=== PATIENT | female | born 1970 | race Caucasian/White ===

== ENCOUNTER 2018-09-06 13:46 | Outpatient (CLI) | payer BC, SELFPAY ==
[2018-09-06 15:08] LABS: TSH (W/Ref FT4) 2.47 uIU/mL (0.358-3.74)
== END 2018-09-06 14:06 ==
PROVIDERS: PCP Emergency Medicine; Visit Provider Nurse Practitioner Family
DX: R00.2 Palpitations (principal)
CPT/HCPCS: 36415; 84443

== ENCOUNTER 2018-09-25 00:50 | Outpatient (CLI) | payer BC, SELFPAY ==
--- NOTE | 2018-09-25 13:26 | DI.MAMMO_ITS ---
SYMPTOM/DIAGNOSIS SCREENING, Z12.31 MAMMOGRAMS: Mammograms were interpreted according to the usual protocol including computer analysis with CAD system, tomosynthesis and C view imaging. Comparison is made with exams from [id number]. The breasts are composed of heterogeneously dense fibroglandular tissue, breast density, Category C. No suspicious masses or suspicious microcalcifications are seen. There has been no significant change. IMPRESSION: Category 1C, negative mammogram. Yearly screening mammography is recommended. [facility] ASSESSMENT OF FINDINGS: Negative. Category 1. Patient will receive a letter notifying them of these results. Bi-RADS category C. The breasts are heterogeneously dense, which may obscure small masses.
== END 2018-09-25 01:10 ==
PROVIDERS: PCP Emergency Medicine; Visit Provider Nurse Practitioner Family
DX: Z12.31 Encounter for screening mammogram for malignant neoplasm of breast (principal)
CPT/HCPCS: 77063; 77067

== ENCOUNTER 2018-09-27 11:23 | Outpatient (CLI) | payer BC, SELFPAY ==
[2018-09-27 11:58] LABS: Absolute Basophil Count 0.02 k/cumm (0.0-0.2); Absolute Eosinophil Count 0.12 k/cumm (0.0-0.7); Absolute Lymphocyte Count 1.44 k/cumm (1.2-3.4); Absolute Monocyte Count 0.31 k/cumm (0.11-0.7); Absolute Neutrophil Count 3.08 k/cumm (1.2-6.7); Basophils % 0.4; Eosinophils % 2.4; HCT 37.7 % (36.0-46.0); HGB 12.8 g/dL (12.0-15.5); Mean Corpuscular Hemoglobin 32.6 pg (27.0-33.0); Mean Corpuscular Volume 95.9 fL (80-95); Mean Platelet Volume 9.9 fL (8.0-11.0); Monocytes % 6.2; Platelet Count 219 x1000/uL (130-400); RBC 3.93 m/cumm (4.00-5.20); RBC Distribution Width 11.8 % (11.7-14.6); White Blood Cell Count 4.97 k/cumm (4.4-10.8)
[2018-09-27 13:20] LABS: ALT 23 U/L (12-78); AST 21 U/L (15-37); Alkaline Phosphatase 45 U/L (46-116); Amylase 74 U/L (25-115); Anion Gap 8.1 mmol/L (3-11); BUN 18 mg/dL (7-18); Bilirubin, Total 0.6 mg/dL (0.2-1.0); CO2 29.9 mmol/L (21.0-32.0); CREATININE 0.85 mg/dL (0.55-1.02); Calcium 8.7 mg/dL (8.5-10.1); Chloride 101 mmol/L (98-107); Glucose 83 mg/dL (70-100); Lipase 133 U/L (73-393); Potassium 4.2 mmol/L (3.5-5.1); Sodium 139 mmol/L (136-145); TSH 2.01 uIU/mL (0.358-3.74); Total Protein 6.9 g/dL (6.4-8.2)
== END 2018-09-27 11:43 ==
PROVIDERS: PCP Emergency Medicine; Visit Provider Emergency Medicine
DX: R10.9 Unspecified abdominal pain (principal)
CPT/HCPCS: 36415; 80053; 83690; 82150; 84443; 85025

== ENCOUNTER 2018-11-19 01:33 | Outpatient (CLI) | payer BC, SELFPAY ==
--- NOTE | 2018-11-19 07:40 | DI.US_ITS ---
SYMPTOM/DIAGNOSIS: MID ABD PAIN, R10.9 ABDOMEN ULTRASOUND: Routine examination was performed. The visualized liver parenchyma is normal in appearance. There is no evidence of cholelithiasis. The common bile duct is of normal diameter. The pancreas and spleen appear intact. No renal abnormality is seen. The abdominal aorta is of normal diameter. Normal appearance of IVC. CONCLUSION: Normal abdominal ultrasound.
== END 2018-11-19 01:53 ==
PROVIDERS: PCP Emergency Medicine; Visit Provider Emergency Medicine
DX: R10.9 Unspecified abdominal pain (principal)
CPT/HCPCS: 76700

== ENCOUNTER 2018-11-22 12:05 | Outpatient (CLI) | payer BC, SELFPAY ==
[2018-11-22 12:42] LABS: Absolute Basophil Count 0.01 k/cumm (0.0-0.2); Absolute Eosinophil Count 0.07 k/cumm (0.0-0.7); Absolute Lymphocyte Count 1.75 k/cumm (1.2-3.4); Absolute Monocyte Count 0.33 k/cumm (0.11-0.7); Absolute Neutrophil Count 3.26 k/cumm (1.2-6.7); Basophils % 0.2; Eosinophils % 1.3; HCT 37.7 % (36.0-46.0); HGB 12.9 g/dL (12.0-15.5); Lymphocytes % 32.3; Mean Corp. HGB Concentration 34.2 g/dL (32.0-36.0); Mean Corpuscular Hemoglobin 32.4 pg (27.0-33.0); Mean Corpuscular Volume 94.7 fL (80-95); Monocytes % 6.1; Neutrophils % 60.1; Platelet Count 185 x1000/uL (130-400); RBC 3.98 m/cumm (4.00-5.20); RBC Distribution Width 11.7 % (11.7-14.6); White Blood Cell Count 5.42 k/cumm (4.4-10.8)
[2018-11-22 13:36] LABS: ESR 10 MM/HR (0-20)
[2018-11-22 14:02] LABS: C-Reactive Protein 0.11 mg/dL (0.0-0.3); Vitamin B12 233 pg/mL (193-986)
[2018-11-25 14:46] LABS: IgA 109 mg/dL (85-499); Interpretation SEE COMMENTS; Tissue Transglutaminase IgA <1.2 U/mL (<4.0)
== END 2018-11-22 12:25 ==
PROVIDERS: PCP Emergency Medicine; Visit Provider Emergency Medicine
DX: R10.9 Unspecified abdominal pain (principal); K58.9 Irritable bowel syndrome, unspecified
CPT/HCPCS: 36415; 82784; 83516; 85652; 82607; 85025; 86140

== ENCOUNTER 2019-09-08 14:02 | Outpatient (REF) | payer BC, SELFPAY ==
--- NOTE | 2019-09-08 13:00 | PAPFT_PTH ---
PATIENT: Sophie Walter LOC: [facility] U#:[id number] AGE/SX: 49/F ROOM: RE09/08/[address]: MANDO Marrero : 1970 BED: DIS: 09/08/2019 SPEC #: [id number] RECD: 09/08/19 18:47 STATUS: JAVED REОлег #: [id number] LARS: 09/08/19 13:[address]: Lilliana Sorto DEPT: [facility] Cytology RECD BY: Scarlet Zambrano ENTERED: 09/08/19 18:48 SP TYPE: PAPFT PHILIPP DR: Jasbir Kay, Tissues: 1 - CX/ENDOCX FOR PAP SMEARS Procedures: PAP THIN PREP/[facility] Screening HPV DNA PROBE Comments: [id number]
== END 2019-09-08 14:22 ==
LOC: LBN 14:02
PROVIDERS: PCP Emergency Medicine; Visit Provider Nurse Practitioner Family
DX: Z12.4 Encounter for screening for malignant neoplasm of cervix (principal); Z11.51 Encounter for screening for human papillomavirus (HPV)
CPT/HCPCS: 88142; 87624

== ENCOUNTER 2019-11-05 16:39 | Emergency (ER) | payer BC, SELFPAY ==
[2019-11-05] VITALS (44 sets, daily range): BP systolic 109–128; BP diastolic 65–86; PULSE 57–72; RESP 12–46; TEMP 36.5–36.9; O2SAT 95–100
[2019-11-05 17:33] LABS: Absolute Basophil Count 0.02 k/cumm (0.0-0.2); Absolute Eosinophil Count 0.08 k/cumm (0.0-0.7); Absolute Lymphocyte Count 1.87 k/cumm (1.2-3.4); Absolute Monocyte Count 0.47 k/cumm (0.11-0.7); Basophils % 0.4; Eosinophils % 1.6; HCT 38.9 % (36.0-46.0); HGB 13.1 g/dL (12.0-15.5); Lymphocytes % 37.9; Mean Corp. HGB Concentration 33.7 g/dL (32.0-36.0); Mean Corpuscular Hemoglobin 31.7 pg (27.0-33.0); Mean Corpuscular Volume 94.2 fL (80-95); Mean Platelet Volume 9.8 fL (8.0-11.0); Monocytes % 9.5; Neutrophils % 50.6; Platelet Count 229 x1000/uL (130-400); RBC 4.13 m/cumm (4.00-5.20); RBC Distribution Width 11.6 % (11.7-14.6); White Blood Cell Count 4.94 k/cumm (4.4-10.8)
[2019-11-05 17:50] LABS: ALT 28 U/L (14-59); AST 24 U/L (15-37); Albumin 4.1 g/dL (3.4-5.0); Alkaline Phosphatase 46 U/L (46-116); BUN 14 mg/dL (7-18); Bilirubin, Total 0.5 mg/dL (0.2-1.0); CREATININE 1.08 mg/dL (0.55-1.02); Calcium 9.3 mg/dL (8.5-10.1); Chloride 102 mmol/L (98-107); Estimated GFR 54.38 (mL/min/1.73m2); Glucose 104 mg/dL (74-106); Potassium 3.6 mmol/L (3.5-5.1); Sodium 140 mmol/L (136-145); Total Protein 7.3 g/dL (6.4-8.2); Troponin I < 0.05 ng/Ml (<0.06)
--- NOTE | 2019-11-05 17:55 | DI.CT_ITS ---
EXAM: CT CHEST PE CTA CLINICAL HISTORY: prior DVT, chest pain TECHNIQUE: CT angiography of the chest was performed with a bolus infusion of 100 cc of Omnipaque [address] angiography was performed with multi-slice acquisition and multi-planar and/or 3D reconstruc tions. COMPARISON: ABD PELVIS WITH CONTRAST from 11/12/2014 FINDINGS: Images obtained through the upper abdomen show unremarkable appearance of visualized portions of li shaun, spleen, pancreas, adrenals and kidneys. No mediastinal or hilar adenopathy. Tracheobronchial t ree appears intact. No evidence of pulmonary embolic disease. No specific abnormality of the thorac ic aorta. No pleural effusion. Lungs are clear. IMPRESSION: No evidence of pulmonary embolic disease.
[2019-11-05] MEDS: Omnipaque 350 MG/ML 100 ML BTL IJ (18:02)
--- NOTE | 2019-11-05 18:20 | DI.VRAD_ITS ---
PROCEDURE INFORMATION: Exam: CT Angiography Chest With Contrast Exam date and time: 11/05/2019 5:55 PM Age: 49 years old Clinical indication: Chest pain; Type not specified; Patient HX: HX dvt post childbirth 20 years ago TECHNIQUE: Imaging protocol: Computed tomographic angiography of the chest with intravenous contrast. 3D rendering: MIP and/or 3D reconstructed images were created by the technologist. Radiation optimization: All CT scans at this facility use at least one of these dose optimization techniques: automated exposure control; mA and/or kV adjustment per patient size (includes targeted exams where dose is matched to clinical indication); or iterative reconstruction. Contrast material: OMNIPAQUE 350; Contrast volume: 100 ml; Contrast route: RAC; Other contrast: Route: Catheter; COMPARISON: No relevant prior studies available. FINDINGS: Pulmonary arteries: No pulmonary embolism to the level of the segmental arteries. Evaluation of the subsegmental branches is limited by suboptimal contrast bolus timing. Aorta: The aorta is normal. Lungs: Unremarkable. No consolidation. No masses. Pleural space: Unremarkable. No pneumothorax. No pleural effusion. Heart: Unremarkable. No cardiomegaly. No pericardial effusion. Lymph nodes: No adenopathy. Bones/joints: Unremarkable. No acute fracture. Soft tissues: Unremarkable. Other findings: Partially visualized upper abdomen is unremarkable. IMPRESSION: No acute abnormality in the chest. No pulmonary embolism to the level of the segmental arteries. Dictated and Authenticated by: Angel Azevedo MD. Ordering:DELGADO Wallis MD
--- NOTE | 2019-11-05 18:45 | NUR.NOTE ---
report given to NICOLAS Claire
--- NOTE | 2019-11-05 19:01 | W.ED.GENAD ---
Discharge Plan Disposition Patient Disposition: HOME Discharge Details Chief Complaint: Chest Pain Clinical Impression: Chest pain Primary Care Provider: Jasbir Kay ED Provider: Bimal Salcedo Home Meds and New Rx's Prescriptions: Continued Adult Probiotic 3 billion cell capsule 3,000 mmu cells PO DAILY RF: 0 biotin 10 mg tablet 10 mg PO DAILY RF: 0 echinacea [Echinacea Herb] 380 mg capsule 380 mg PO BID RF: 0 omega-3 fatty acids [Fish Oil Concentrate] 1,000 mg capsule 1,000 mg PO DAILY RF: 0 bupropion HCl [Wellbutrin XL] 150 mg tablet extended release 24 hr 150 mg PO DAILY Qty: 90 RF: 3 esomeprazole magnesium 20 mg capsule,delayed release(DR/EC) 20 mg PO DAILY Qty: 90 RF: 1 acetaminophen [Acetaminophen Extra Strength] 500 MG tablet 1,000 mg PO Q8H PRN PRNQty: 100 RF: 3 Discharge Instructions Instructions: Chest Pain (ED) Additional Instructions: Please contact your primary care physician to arrange follow-up. You should have a stress test performed ideally within the next 72 hours. Return to the ER for any worsening or new concerning symptoms. Referrals: Jasbir Kay DO [Primary Care Provider] - Medical Decision Making 1897 --49-year-old female presents tonight with intermittent chest pain over the past 3 to 4 weeks. Currently having chest pain today for few hours. Patient has no risk factors for ACS. Screening ECG was reviewed and interpreted by me: Normal sinus rhythm 70 bpm, normal axis no STEMI, nondiagnostic. Labs reviewed: Initial troponin negative. Plan for delta troponin and repeat ECG. CT of the chest to assess for pulmonary embolism given moderate risk with prior history of DVT. CT was interpreted by radiology: FINDINGS: Pulmonary arteries: No pulmonary embolism to the level of the segmental arteries. Evaluation of the subsegmental branches is limited by suboptimal contrast bolus timing. Aorta: The aorta is normal. Lungs: Unremarkable. No consolidation. No masses. Pleural space: Unremarkable. No pneumothorax. No pleural effusion. Heart: Unremarkable. No cardiomegaly. No pericardial effusion. Lymph nodes: No adenopathy. Bones/joints: Unremarkable. No acute fracture. Soft tissues: Unremarkable. Other findings: Partially visualized upper abdomen is unremarkable. IMPRESSION: No acute abnormality in the chest. No pulmonary embolism to the level of the segmental arteries. 20:32 --second EKG reviewed and interpreted by me: Sinus rhythm 60 bpm, normal axis, nondiagnostic, no changes from prior ECG. Delta troponin at 3 hours negative and unchanged from prior. Patient has remained hemodynamically stable in the department. All results were discussed with the patient. Plan for outpatient follow-up with PCP. Patient should have a stress test performed ideally within next 72 hours. Disposition decision was made weighing the risks and benefits of hospitalization versus outpatient treatment, the risk for further decompensation, and the patient's wishes. The patient was stable and requested discharge. Prior to discharge, my usual and customary return precautions were reviewed with the patient - this included follow-up instructions and reason to return to the emergency department if condition worsens, does not improve as expected, or other new concerns arise. HPI General Mode of arrival: ambulatory. Date/Time Provider Initiated Documentation: 11/05/19 17:17. Limitations to Documentation: no limitations. Information obtained by: patient. HPI Narrative: 49-year-old female with prior history of remote DVT peripartum, not on anticoagulation, here with chief complaint of chest pain. Patient notes that she has had chest pain intermittently over the past 3 to 4 weeks. Episodes of pain are mild to moderate. They occur at rest and are unprovoked. Episodes last minutes to sometimes hours. Pain is localized to her left anterior chest without radiation. Chest pain described as twinges, intermittently sharp and at times more pressure-like. She does note associated shallow breathing with episodes. Recently today and yesterday she does note some associated sweating. No associated nausea. Patient does note dry cough today. No calf pain or swelling. Related Data Home Medications Medication Instructions Recorded Confirmed acetaminophen [Acetaminophen Extra 1,000 mg PO Q8H PRN PRN #100 tab 06/08/15 11/05/19 Strength] biotin 10 mg tablet 10 mg PO DAILY 09/06/18 11/05/19 echinacea 380 mg capsule 380 mg PO BID 09/06/18 11/05/19 lactobacillus combination no.8 3 3,000 mmu cells PO DAILY 09/12/18 11/05/19 billion cell capsule bupropion HCl 150 mg 24 hr tablet, 150 mg PO DAILY #90 tab-cap 11/26/18 11/05/19 extended release esomeprazole magnesium 20 mg 20 mg PO DAILY #90 cap 05/08/19 11/05/19 capsule,delayed release omega-3 fatty acids 1,000 mg 1,000 mg PO DAILY 09/08/19 11/05/19 capsule Previous Rx's Medication Instructions Recorded acetaminophen [Acetaminophen Extra 1,000 mg PO Q8H PRN PRN #100 tab 06/08/15 Strength] bupropion HCl 150 mg 24 hr tablet, 150 mg PO DAILY #90 tab-cap 11/26/18 extended release esomeprazole magnesium 20 mg 20 mg PO DAILY #90 cap 05/08/19 capsule,delayed release Allergies Allergy/AdvReac Type Severity Reaction Status Date / Time adhesive AdvReac Mild blister/latonya Verified 11/05/19 20:36 h sertraline HCl [From Zoloft] AdvReac Mild night Verified 11/05/19 20:36 sweats aspartame AdvReac makes her Verified 11/05/19 20:36 [From Nutrasweet Aspartame] feel odd dermabond AdvReac Uncoded 11/05/19 20:36 General Stated Complaint: Chest Pain EVE: 2 Review of Systems All systems reviewed & are unremarkable except as noted in HPI and below Cardiovascular Cardiovascular: Reports as per HPI Respiratory Respiratory: Reports as per HPI Gastrointestinal Gastrointestinal: Denies abdominal pain and Denies nausea [facility] Medical History Closed dislocation of metacarpal joint of fifth finger of right hand (Resolved) Fracture of fourth metacarpal bone of right hand (Resolved 06/07/15) Reflux esophagitis (Acute 01/16/13) Surgical History Appendectomy October 2014 Family History Mother S/p nephrectomy Leukemia Social History Smoking/Tobacco Use Status: Never Alcohol Intake: current Alcohol Intake frequency: a few times a month Alcohol type: wine Drug use: Never Substance use type: does not use Seatbelt use: always Do you feel safe at home: Yes Do you feel safe in your relationship?: Yes History History 4 Para Hx # Term Pregnancies Multiple births Hx # Pregnancies Ectopic pregnancies AB induced Hx Number of Living Children AB spontaneous Exam Const General: cooperative and no acute distress HENMT Mouth: moist mucous membranes Eyes Conjunctivae: normal conjunctivae Sclera: normal sclerae Neck Neck: trachea midline and supple Resp Auscultation: clear to auscultation bilaterally, no rales, no rhonchi and no wheezes Cardio Jugular venous pressure: no JVD Rate: regular rate and not tachycardic Rhythm: regular rhythm GI Palpation: soft, not firm, no guarding, no masses, not rigid and nontender Skin General skin exam: no rashes or lesions noted Neuro General: alert, awake, oriented x3 and tone normal Extrem General: no calf tenderness and no edema Psych Appearance: grossly normal Mental Status: mental status grossly normal Course Vital Signs Vital signs: Vital Signs Temperature 36.9 C 11/05/19 16:41 Pulse 65 11/05/19 16:41 Respiratory Rate 19 11/05/19 16:41 Blood Pressure 128/77 11/05/19 16:41 Pulse Oximetry 100 11/05/19 16:41 Temperature 36.5 C 11/05/19 18:05 Temperature Source Temporal Artery Scan 11/05/19 18:05 Pulse 65 11/05/19 18:05 Respiratory Rate 17 11/05/19 18:05 Respiratory Effort Non-Labored 11/05/19 17:00 Respiratory Depth Normal 11/05/19 17:00 Respiratory Pattern Normal 11/05/19 17:00 Blood Pressure 117/69 11/05/19 18:05 Blood Pressure Position Sitting 11/05/19 16:41 Pulse Oximetry 100 11/05/19 18:05 Oxygen Delivery Method Room Air 11/05/19 18:05 Oxygen Flow Rate 0 11/05/19 18:05 Pain Level 5 11/05/19 18:05 Lab/Test Results Lab/Test Results: Laboratory Tests Range/Units 11/05/19 11/05/19 16:50 16:50 WBC (4.4-10.8) k/cumm 4.94 RBC (4.00-5.20) m/cumm 4.13 Hgb (12.0-15.5) g/dL 13.1 Hct (36.0-46.0) % 38.9 MCV (80-95) fL 94.2 MCH (27.0-33.0) pg 31.7 MCHC (32.0-36.0) g/dL 33.7 RDW (11.7-14.6) % 11.6 L Plt Count (130-400) x1000/uL 229 MPV (8.0-11.0) fL 9.8 Immature Gran % % 0.0 Neutrophils % 50.6 Lymphocytes % 37.9 Monocytes % 9.5 Eosinophils % 1.6 Basophils % 0.4 Absolute Neutrophils (1.2-6.7) k/cumm 2.50 Absolute Lymphocytes (1.2-3.4) k/cumm 1.87 Absolute Monocytes (0.11-0.7) k/cumm 0.47 Absolute Eosinophils (0.0-0.7) k/cumm 0.08 Absolute Basophils (0.0-0.2) k/cumm 0.02 Sodium (136-145) mmol/L 140 Potassium (3.5-5.1) mmol/L 3.6 Chloride (98-107) mmol/L 102 Carbon Dioxide (21.0-32.0) mmol/L 30.0 Anion Gap (3-11) mmol/L 8.0 BUN (7-18) mg/dL 14 Creatinine (0.55-1.02) mg/dL 1.08 H Estimated GFR/1.73 m2 (mL/min/1.73m2) 54.38 Glucose (74-106) mg/dL 104 Calcium (8.5-10.1) mg/dL 9.3 Total Bilirubin (0.2-1.0) mg/dL 0.5 AST (15-37) U/L 24 ALT (14-59) U/L 28 Alkaline Phosphatase (46-116) U/L 46 Troponin I (<0.06) ng/Ml < 0.05 Total Protein (6.4-8.2) g/dL 7.3 Albumin (3.4-5.0) g/dL 4.1
--- NOTE | 2019-11-05 19:13 | NUR.NOTE ---
Nursing Note: Patient resting, No c/o at this time.
--- NOTE | 2019-11-05 20:06 | NUR.NOTE ---
Nursing Note Tropwanda repeated
[2019-11-05 20:28] LABS: Troponin I < 0.05 ng/Ml (<0.06)
--- NOTE | 2019-11-05 20:35 | NUR.NOTE ---
faxed referal 11/05/19Nursing Note:
== END 2019-11-05 21:05 | disposition home or self-care (01) ==
PROVIDERS: Emergency Provider Student in an Organized Health Care Education/Training Program; PCP Emergency Medicine
DX: R07.9 Chest pain, unspecified (principal)
CPT/HCPCS: 36415; 71275; 80053; 93005; 99284; 84484; 85025; 93010; J3490

== ENCOUNTER 2020-06-14 19:55 | Outpatient (REF) | payer BC, SELFPAY | END 2020-06-14 20:15 | LOC: LBN 19:55 | PROVIDERS: PCP Emergency Medicine; Visit Provider Nurse Practitioner Women's Health | DX: N76.0 Acute vaginitis (principal) | CPT/HCPCS: 87480; 87510; 87660 ==

== ENCOUNTER 2020-08-25 06:40 | Emergency (ER) | payer BC, SELFPAY ==
[2020-08-25 06:43] VITALS: BP 134/96; PULSE 86; RESP 16; TEMP 36.2; O2SAT 100
--- NOTE | 2020-08-25 06:46 | W.ED.GENAD ---
Discharge Plan Disposition Patient Disposition: HOME Condition: Good Discharge Details Clinical Impression: Neck pain on right side, Right arm pain Primary Care Provider: Jasbir Kay ED Provider: Stanley Benson [place] Meds and New Rx's Prescriptions: Continued imiquimod 5 % cream in packet 1 applic TP .COMPLEX Qty: 12 RF: 3 Adult Probiotic 3 billion cell capsule 3,000 mmu cells PO DAILY RF: 0 biotin 10 mg tablet 10 mg PO DAILY RF: 0 echinacea [Echinacea Herb] 380 mg capsule 380 mg PO BID RF: 0 omega-3 fatty acids [Fish Oil Concentrate] 1,000 mg capsule 1,000 mg PO DAILY RF: 0 bupropion HCl [Wellbutrin XL] 150 mg tablet extended release 24 hr 150 mg PO DAILY Qty: 90 RF: 3 esomeprazole magnesium 20 mg capsule,delayed release(DR/EC) 20 mg PO DAILY Qty: 90 RF: 1 fluconazole [Diflucan] 150 mg tablet 150 mg PO ONCE Qty: 1 RF: 1 prednisone 20 mg tablet 40 mg PO DAILY Qty: 10 RF: 0 tramadol 100 mg tablet 100 mg PO TID PRN (Reason: pain) Qty: 14 RF: 0 acetaminophen [Acetaminophen Extra Strength] 500 MG tablet 1,000 mg PO Q8H PRN PRNQty: 100 RF: 3 Discharge Instructions Instructions: Neck Pain (ED) Additional Instructions: Follow-up with primary this afternoon as planned for further evaluation and management. Return to ED for chest pain, shortness of breath, neurologic changes. Referrals: Jasbir Kay, [Primary Care Provider] - Medical Decision Making Patient here with neck/right shoulder/right upper extremity pain which seems likely to be cervical radiculopathy or trapezial muscle spasm. No direct trauma or injury. No midline cervical tenderness. Neurologically intact. Has been on prednisone and tramadol since yesterday with worsening symptoms overnight. Has appointment to see primary care this afternoon. Will treat symptomatically this morning with Lidoderm patch, IM ketorolac, p.o. cyclobenzaprine. Consider gabapentin but will leave this up to PCP. Return to ED for chest pain, shortness of breath, numbness or weakness of the arm. HPI General Mode of arrival: ambulatory. Date/Time Provider Initiated Documentation: 08/25/20 06:46. Limitations to Documentation: no limitations. Information obtained by: patient and RN notes reviewed. HPI Narrative: Patient presents to ED with right-sided neck pain radiating into the right shoulder and arm. Patient reports no direct injury. She was blow drying her hair Sunday morning when she first noticed pain and tightening. Subsequently has developed worsening pain. Spoke to primary care yesterday and prescribed tramadol and prednisone and has appointment to be seen today. Overnight severe pain which has kept her up. She feels best lying flat with right arm up over her head. Standing or sitting as well as flexion extension of the neck makes the pain worse. No fever, cough, shortness of breath, chest pain. No numbness or weakness to the arm. No rash. Unable to tolerate discomfort and came in this morning for immediate relief until she is able to see primary care this afternoon. Related Data Home Medications Medication Instructions Recorded Confirmed acetaminophen [Acetaminophen Extra 1,000 mg PO Q8H PRN PRN #100 tab 06/08/15 06/14/20 Strength] biotin 10 mg tablet 10 mg PO DAILY 09/06/18 06/14/20 echinacea 380 mg capsule 380 mg PO BID 09/06/18 06/14/20 lactobacillus combination no.8 3 3,000 mmu cells PO DAILY 09/12/18 06/14/20 billion cell capsule omega-3 fatty acids 1,000 mg 1,000 mg PO DAILY 09/08/19 06/14/20 capsule bupropion HCl 150 mg 24 hr tablet, 150 mg PO DAILY #90 tab-cap 02/27/20 06/14/20 extended release esomeprazole magnesium 20 mg 20 mg PO DAILY #90 cap 06/08/20 06/14/20 capsule,delayed release imiquimod 5 % topical cream packet 1 applic TP .COMPLEX #12 each 06/14/20 06/14/20 fluconazole 150 mg tablet 150 mg PO ONCE #1 tab 06/15/20 prednisone 20 mg tablet 40 mg PO DAILY #10 tab 08/24/20 tramadol 100 mg tablet 100 mg PO TID PRN #14 tab 08/24/20 Previous Rx's Medication Instructions Recorded acetaminophen [Acetaminophen Extra 1,000 mg PO Q8H PRN PRN #100 tab 06/08/15 Strength] bupropion HCl 150 mg 24 hr tablet, 150 mg PO DAILY #90 tab-cap 02/27/20 extended release esomeprazole magnesium 20 mg 20 mg PO DAILY #90 cap 06/08/20 capsule,delayed release imiquimod 5 % topical cream packet 1 applic TP .COMPLEX #12 each 06/14/20 fluconazole 150 mg tablet 150 mg PO ONCE #1 tab 06/15/20 prednisone 20 mg tablet 40 mg PO DAILY #10 tab 08/24/20 tramadol 100 mg tablet 100 mg PO TID PRN #14 tab 08/24/20 Allergies Allergy/AdvReac Type Severity Reaction Status Date / Time adhesive AdvReac Mild blister/latonya Verified 08/25/20 06:46 h sertraline HCl [From Zoloft] AdvReac Mild night Verified 08/25/20 06:46 sweats aspartame AdvReac makes her Verified 08/25/20 06:46 [From Nutrasweet Aspartame] feel odd dermabond AdvReac Uncoded 08/25/20 06:46 General Stated Complaint: Nk/Back Pain EVE: 4 Review of Systems Narrative: As documented in HPI otherwise negative as below. Const: no fever, chills Resp: no cough, SOB, pleuritic pain CV: no CP, diaphoresis, edema, syncope Neuro: no headache, numbness, focal weakness, confusion PFSH Medical History Closed dislocation of metacarpal joint of fifth finger of right hand Fracture of fourth metacarpal bone of right hand (06/07/15) Reflux esophagitis (01/16/13) Vulvar lesion Surgical History Appendectomy October 2014 Family History Mother S/p nephrectomy Leukemia Social History Smoking/Tobacco Use Status: Never Smoking risk assessment performed?: Yes Alcohol Intake: current Alcohol Intake frequency: a few times a month Alcohol type: wine Drug use: Never Substance use type: does not use Seatbelt use: always Do you feel safe at home: Yes Do you feel safe in your relationship?: Yes History History 4 Para Hx # Term Pregnancies Multiple births Hx # Pregnancies Ectopic pregnancies AB induced Hx Number of Living Children AB spontaneous Exam Narrative Exam Narrative: Vitals: Afebrile. Blood pressure little up likely to to discomfort. Otherwise vitals and room air pulse ox normal. Const: WDWN female in NAD. HEENT: NC/AT. Normal facial exam. Eyes: Normal conjunctiva and sclera. Neck: Supple. Trachea midline. Decent ROM. No midline tenderness. Lungs: Normal respiratory effort. Cor: Good radial pulses. Back: Some tenderness right upper trapezial area. Neuro: A+O x 3. Normal speech, mentation, gait. Cranial nerves II - XII grossly intact. No gross motor or sensory deficit. Strength and sensation normal in right upper extremity. Ext: No C/C/E. Normal range of motion throughout and right upper extremity. Skin: Warm and dry without rash. Course Vital Signs Vital signs: Vital Signs Temperature 97.2 F L 08/25/20 06:43 Pulse 86 08/25/20 06:43 Respiratory Rate 16 08/25/20 06:43 Blood Pressure 134/96 H 08/25/20 06:43 Pulse Oximetry 100 08/25/20 06:43 Temperature 97.2 F L 08/25/20 06:43 Temperature Source Temporal Artery Scan 08/25/20 06:43 Pulse 86 08/25/20 06:43 Respiratory Rate 16 08/25/20 06:43 Blood Pressure 134/96 H 08/25/20 06:43 Blood Pressure Position Sitting 08/25/20 06:43 Pulse Oximetry 100 08/25/20 06:43 Oxygen Delivery Method Room Air 08/25/20 06:43 Oxygen Flow Rate 0 08/25/20 06:43 Pain Level 8 08/25/20 06:43
[2020-08-25] MEDS: Ketorolac 30 MG/ML VIAL IM (07:11)
[2020-08-25] MEDS: Lidocaine 5% Patch 1 PATCH TP (07:11)
[2020-08-25] MEDS: Cyclobenzaprine 10 MG TAB PO (07:11)
== END 2020-08-25 07:20 | disposition home or self-care (01) ==
LOC: ER 07:17
PROVIDERS: Emergency Provider Emergency Medicine; PCP Emergency Medicine
DX: M54.2 Cervicalgia (principal); M25.511 Pain in right shoulder; M79.601 Pain in right arm
CPT/HCPCS: 96372; 99284; 99283; J1885

== ENCOUNTER 2020-08-31 12:25 | Outpatient (CLI) | payer BC, SELFPAY ==
--- NOTE | 2020-08-31 06:45 | DI.MRI_ITS ---
EXAM: MR CERVICAL SPINE WO CLINICAL HISTORY: right arm and neck pain, numbness,RADICULOPATHY,M54.12,R20.0 TECHNIQUE: Multiplanar multisequence MRI of the cervical spine was performed without intravenous con trast. COMPARISON: No exams were available for comparison FINDINGS: BONES: Vertebral body heights are maintained. Intervertebral disc spaces are normal. Alignment is nor mal. Mild endplate degenerative signal changes are seen at C5-C6, C6-C7 and C7-T1. Marrow signal oth erwise is within normal limits. CERVICAL CORD: Craniovertebral junction is unremarkable. The cervical cord is normal size and signal intensity. SOFT TISSUES: Unremarkable. C2-3: No disc herniation or bulge is identified. No significant central spinal canal or neural forami nal stenosis. C3-4: No disc herniation or bulge is identified. No significant central spinal canal or neural forami nal stenosis C4-5: No disc herniation or bulge is identified. No significant central spinal canal or neural forami nal stenosis C5-6: Mild prominence of the osteophyte disc complex. No significant central spinal canal stenosis. Mild left neural foraminal stenosis. No significant right neural foraminal stenosis. C6-7: Mild prominence of the osteophyte disc complex. No significant central spinal canal stenosis. Mild left neural foraminal stenosis. No significant right neural foraminal stenosis. C7-T1: No disc herniation or bulge is identified. No significant central spinal canal or neural yeal inal stenosis IMPRESSION: Degenerative changes in the cervical spine at C5-6 and C6-C7 causing mild left neural foraminal steno sis at each of these levels. DATA REPOSITORY:
== END 2020-08-31 12:45 ==
PROVIDERS: PCP Emergency Medicine; Visit Provider Emergency Medicine
DX: M47.22 Other spondylosis with radiculopathy, cervical region (principal); R20.0 Anesthesia of skin; M48.02 Spinal stenosis, cervical region
CPT/HCPCS: 72141

== ENCOUNTER 2020-11-03 04:01 | Outpatient (CLI) | payer BC, SELFPAY ==
[2020-11-03 20:21] LABS: COVID-19 RT-PCR UVMMC Result Negative (Negative)
== END 2020-11-03 04:21 ==
PROVIDERS: PCP Emergency Medicine; Visit Provider Nurse Practitioner Family
DX: Z11.59 Encounter for screening for other viral diseases (principal)
CPT/HCPCS: U0003

== ENCOUNTER 2020-12-15 01:30 | Outpatient (CLI) | payer BC, SELFPAY ==
--- NOTE | 2020-12-15 07:15 | DI.MAMMO_ITS ---
EXAM: MAMMO SCREENING CLINICAL HISTORY: screening,z12.39. TECHNIQUE: Bilateral full field digital CC and MLO mammographic images were obtained with 3D tomosyn thesis and utilizing computer aided detection (CAD). COMPARISON: Prior mammograms dating back to 2011, the most recent being August 2018. FINDINGS: The fibroglandular tissue pattern is dense, this decreasing the sensitivity mammogram for finding hid den underlying lesions. No new obvious findings in left breast. In the right breast there is a subtle suggestion a small non calcified nodule measuring 5 x 4 millimeters located approximately 3-4 centimetres in from the nipple on the CC view. There few benign-appearing calcifications in the breasts now evident. No malignant -appearing microcalcification groups. There is no significant architectural distortion nor skin thic kening-retraction. IMPRESSION: Dense bilateral fibroglandular tissue. No obvious radiographic evidence of malignancy in left breast . Possible right breast nodule as described above. Spot compression 3D view and breast ultrasound r ecommended BI-RADS Category 0 - Assessment Incomplete: Need additional imaging evaluation Breast Density - Category C - Heterogeneously dense Breast density Category C or D implies that the patient has dense breast tissue. Dense breast tissue can make it harder to find cancer on a mammogram. Dense breast tissue is also associated with an incr eased risk of breast cancer. This information about the result of the mammogram report was provided to the patient to raise their awareness. Use this report when you speak with the patient about their risks for breast cancer, which includes their family history. At that time, you may recommend additional screening tests (Ultrasoun d or MRI) as these tests may add significant information. A negative radiographic report should not delay biopsy if a dominant or clinically suspicious mass is present. Up to ten percent of cancers are not identified on mammography. A negative report may reinforce clinical impression. Adenosis and dense breasts may obscure an underlying neoplasm. False positive reports average 6 to 10%. Patient will receive a letter notifying them of these results.
== END 2020-12-15 01:31 ==
LOC: DI 01:31
PROVIDERS: PCP Emergency Medicine; Visit Provider Nurse Practitioner Women's Health
DX: Z12.31 Encounter for screening mammogram for malignant neoplasm of breast (principal); R92.8 Other abnormal and inconclusive findings on diagnostic imaging of breast
CPT/HCPCS: 77063; 77067

== ENCOUNTER 2020-12-17 01:08 | Outpatient (CLI) | payer BC, SELFPAY ==
--- NOTE | 2020-12-17 09:50 | DI.MAMMO_ITS ---
EXAM: MG MAMMO SCREEN CALL BACK UNI CLINICAL HISTORY: F/U MAMMO, SUBTLE RT NODULE,DENSE TISSUE TECHNIQUE: Spot compression views and tomographic imaging were performed. COMPARISON: 15 December 2020 and prior exams back to 2011. FINDINGS: No suspicious masses or suspicious microcalcifications are seen. No persistent abnormality is seen on the additional views performed. The findings are consistent wit h overlying fibroglandular tissue. There has been no significant change from prior exams. IMPRESSION: BI-RADS Category 1, Negative Yearly screening mammography is recommended. Breast Density - Category C - Heterogeneously dense.
== END 2020-12-17 01:09 ==
PROVIDERS: PCP Emergency Medicine; Visit Provider Nurse Practitioner Women's Health
DX: Z12.31 Encounter for screening mammogram for malignant neoplasm of breast (principal); R92.8 Other abnormal and inconclusive findings on diagnostic imaging of breast; N64.59 Other signs and symptoms in breast
CPT/HCPCS: 77063; 77067

== ENCOUNTER 2021-01-12 07:28 | Day surgery (SDC) | payer BC, SELFPAY ==
--- NOTE | 2021-01-12 07:09 | ENDO_ITS ---
Date of service: 01/12/21 Time of Service: 10:05 Endoscopy Report DATE OF PROCEDURE: 01/12/21 PRE-OP DIAGNOSIS: Colon Cancer Screening/ GERD POST-OP DIAGNOSIS: same PROCEDURE: 1. EGD with biopsies 2. Colonoscopy with biopsies SURGEON: Allegra Oliva ANESTHESIA: other (General/ASA 2/Dante Guzman,FITO) ESTIMATED BLOOD LOSS: 3 PATHOLOGY: other (duodenal, antrum and GE junction bx, randome colon biopsies) COMPLICATIONS: None DISPOSITION: same day INDICATIONS: Sophie is a pleasant 50-year-old female here to discuss her first screening colonoscopy. She also mentions that over the last 1-1/2 to 2 years she has had some changes in her bowel habits. She now has constipation for 2 to 3 days followed by crampy abdominal pain and diarrhea. She is not had any weight loss, hematochezia or melena. She has no known history of rectal cancer, Crohn's or ulcerative colitis. We discussed the differential diagnosis of autoimmune colitis, polyps, celiac disease, thyroid disease and diet related. I think it is reasonable at her age to start with a screening colonoscopy. Due to her worsening GERD symptoms despite her Nexium I think doing an upper endoscopy is also reasonable. Both the colonoscopy and upper endoscopy were reviewed. I will do biopsies of the duodenum to rule out celiac disease. I will do biopsies of the stomach to rule out H. pylori. If the bowel looks normal I will do random biopsies to rule out microscopic colitis. If all the biopsies are negative then we will trial some dietary changes including the FODMAP diet to see if this makes a difference. In the meantime she can keep a food diary to see if she can find any triggers. I will order some lab tests day of her colonoscopy as well. Risks, benefits and complications have been reviewed. Complications include but are not limited to bleeding, pain, perforation, missed small lesion/polyp, sore throat, aspiration and adverse reaction to the medications. Questions were entertained and answered to their satisfaction and they wished to proceed. No guarantees were given or implied. COVID-19 testing explained to the patient. Reason for test reviewed. Quarantine per state requirements reviewed with patient. Patient understands and agrees to testing. Proceed with colonoscopy and upper endoscopy under sedation PREP: Miralax/Dulcolax PROCEDURE START TIME: 08:58 PROCEDURE END TIME: 09:50 COLONOSCOPY RETRACTION TIME: 26 minutes FINDINGS: mild gastric inflammation PROCEDURE DESCRIPTION: After informed consent was obtained the patient was take to the procedure room and placed in a supine position. Monitors were applied and a time out was done. The patients name, date of , procedure type, allergies to medications and metal in their body was reviewed. A bite block was placed and the patient was sedated. Once sedated and comfortable the gastroscope was advanced through the oropharynx which was grossly normal into the esophagus. The proximal, mid- and distal esophagus were normal. The scope was advanced into the stomach and th rough the pylorus into the 3rd portion of the duodenum. The duodenum was noted to be normal. Biopsies were done to rule out Celiac. The sphincter of oddi was identified and was normal. The scope was retracted back into the stomach. There was mild inflammation noted in the antrum. Biopsies were done to rule out H. pylori. There were no ulcers. The scope was retro-flexed. The cardia and fundus were noted to be normal. There was no hiatal hernia noted. The scope was retracted back into the esophagus and biopsies were done of the GE junction to rule out Dodge's. The Z line was regular. The GE junction was at 38 cm. While the patient was still sedated they were placed in a left decubitous position. A rectal exam was done. External exam was normal. Internal exam revealed a slightly decreased sphincter tone and no palpable masses. The scope was then introduced and retro-flexed. No internal hemorrhoids, masses or polyps were identified on retroflexion. The scope was then advanced to the cecum without difficulty. The ileocecal valve and appendiceal orifice were identified. The prep was adequate. The scope was then slowly retracted over 26 minutes back into the rectum. There were no polyps. There was no diverticulosis noted. Randome biopsies were done of the ascending, transverse, descending, sigmoid and rectum. The scope was removed and the patient was woken up and taken back to Same day surgery in stable condition. The patient tolerated the procedure well and there were no immediate complications. Follow up: 2 weeks
--- NOTE | 2021-01-12 07:10 | W.PM.DSUDISC ---
Discharge Plan Disposition Patient Disposition: HOME Condition: Good Discharge Details Reason For Visit: Colonoscopy/EGD Attending Provider: Allegra Oliva Primary Care Provider: Jasbir Kay Home Meds and New Rx's Prescriptions: New esomeprazole magnesium 20 mg capsule,delayed release(DR/EC) 20 mg PO BID Qty: 60 RF: 0 Continued Adult Probiotic 3 billion cell capsule 3,000 mmu cells PO DAILY RF: 0 biotin 10 mg tablet 10 mg PO DAILY RF: 0 echinacea [Echinacea Herb] 380 mg capsule 380 mg PO BID RF: 0 omega-3 fatty acids [Fish Oil Concentrate] 1,000 mg capsule 1,000 mg PO DAILY RF: 0 bupropion HCl [Wellbutrin XL] 150 mg tablet extended release 24 hr 150 mg PO DAILY Qty: 90 RF: 3 acetaminophen [Acetaminophen Extra Strength] 500 MG tablet 1,000 mg PO Q8H PRN PRNQty: 100 RF: 3 Discontinued esomeprazole magnesium 20 mg capsule,delayed release(DR/EC) 20 mg PO DAILY Qty: 90 RF: 1 Discharge Instructions Instructions: Gastritis (DC), Diet for Stomach Ulcers and Gastritis (ED) Additional Instructions: Findings: Mild inflammation of the stomach Follow up: 2 weeks in the office Medication: Increase esomeprazole to 20 mg 2 x a day Please call if you develop: fevers >101.5 Nausea or Vomiting Abdominal pain that is not transient DAY SURGERY UNIT POST ENDOSCOPY INSTRUCTIONS 1. Because there will be medication in your system for the next 24 hours, you may feel a little sleepy. Your coordination will be affected. Therefore: a. Do not drive or operate dangerous equipment for 24 hours. b. Do not drink alcohol beverages for 24 hours (not even beer). c. Plan to go home and rest for the day. 2. Generally there are no restrictions on your activity after a day or so has gone by, but you may feel a bit fatigued for a few days. 3 After you arrive home you may have a light meal and return to a normal diet as you can tolerate it without feeling sick to your stomach. 4. After surgery, you may feel pain or discomfort. This should be only transient, but if it persists please contact your doctor. 5. If there are any questions regarding the findings of your procedure, please feel free to contact your doctor. 6. If you are unable to contact your doctor with a problem, contact the hospital at [phone]. 7. Continue all your regular medications unless directed otherwise. I understand the above instructions and have no questions. Signature of Patient or Responsible Adult Escort Date/Time Name of Responsible Adult Escort Signature of Nurse Date/Time Referrals: Allegra Oliva MD [ [facility] STAFF PHYSICIAN] - 01/28/21 8:30 am Activity:: Activity as Tolerated Diet:: low acid Discharge Orders Discharge Orders: Discharge Order (Routine); Ordered 01/12/21 Ordered By: Allegra Oliva
[2021-01-12 07:30] VITALS: BP 120/81; PULSE 65; RESP 16; TEMP 36.3; O2SAT 98
[2021-01-12] MEDS: Lactated Ringers 1,000 ML 80 ML IV (08:06)
--- NOTE | 2021-01-12 09:00 | BOWEL_PTH ---
PATIENT: Sophie Walter LOC: [facility] U#:[id number] AGE/SX: 50/F ROOM: RE01/12/[address]: Allegra Oliva MD : 1970 BED: DIS: 01/12/2021 SPEC #: [id number] RECD: 01/12/21 12:35 STATUS: JAVED REОлег #: [id number] LARS: 01/12/21 09:[address]: Allegar Oliva DEPT: Surgical Specimen RECD BY: Scarlet Zambrano ENTERED: 01/12/21 12:37 SP TYPE: Bowel OTHR DR: Jasbir Kay DO Tissues: 1 - BIOPSY BOWEL 2 - STOMACH BIOPSY 3 - ESOPHAGUS BIOPSY 4 - BIOPSY BOWEL 5 - BIOPSY BOWEL 6 - BIOPSY BOWEL 7 - BIOPSY BOWEL Procedures: GROSS AND MICRO LEVEL 4 Comments: [id number]
[2021-01-12 09:01] LABS: Abs Immature Grans 0.01 10^3/uL (0.0-0.06); Absolute Basophil Count 0.02 10^3/uL (0.0-0.2); Absolute Eosinophil Count 0.06 10^3/uL (0.0-0.7); Absolute Lymphocyte Count 1.24 10^3/uL (1.2-3.4); Absolute Monocyte Count 0.22 10^3/uL (0.1-0.8); Absolute Neutrophil Count 2.01 10^3/uL (1.2-6.7); Basophils % 0.6; Eosinophils % 1.7; HGB 14.1 g/dL (11.2-15.7); Immature Grans % 0.3; Lymphocytes % 34.8; MCHC 34.4 % (32.0-36.0); MPV 9.7 fL (8.0-11.0); Monocytes % 6.2; Neutrophils % 56.4; Nucleated RBC 0 %; Platelet Count 176 10^3/uL (130-400); RBC 4.41 10^6/uL (3.93-5.22); RDW 11.5 % (11.7-14.6); RDW-SD 39.5 fL; WBC 3.56 10^3/uL (4.4-10.8)
[2021-01-12 09:22] LABS: ALT 31 U/L (14-59); AST 22 U/L (15-37); Alkaline Phosphatase 48 U/L (46-116); Anion Gap 5.2 mmol/L (3-11); BUN 11 mg/dL (7-18); Bilirubin, Total 1.2 mg/dL (0.2-1.0); CO2 32.8 mmol/L (21.0-32.0); CREATININE 0.9 mg/dL (0.55-1.02); Calcium 9.3 mg/dL (8.5-10.1); Chloride 103 mmol/L (98-107); Glucose 94 mg/dL (74-106); Magnesium 1.9 mg/dL (1.8-2.4); Sodium 141 mmol/L (136-145); TSH 3.57 uIU/mL (0.36-3.74); Total Protein 7.5 g/dL (6.4-8.2)
[2021-01-12 10:22] VITALS: BP 120/80; PULSE 64; RESP 18; TEMP 36.7; O2SAT 100
[2021-01-17 14:12] LABS: IgA 116 mg/dL (85-499); Interpretation (See Note); Tissue Transglutaminase IgA <1.2 U/mL (<4.0)
== END 2021-01-12 11:10 | disposition home or self-care (01) ==
LOC: SUR 07:28
PROVIDERS: PCP Emergency Medicine; Visit Provider Surgery
PROC: (CPT 45380; principal; 2021-01-12 08:15)
DX: K59.00 Constipation, unspecified (principal); K21.9 Gastro-esophageal reflux disease without esophagitis; R19.7 Diarrhea, unspecified
CPT/HCPCS: 45380; 43239; 80053; 81025; 82784; 83516; 86816; 88305; 83735; 84443; 85025; J1885; J2001; J2704

== ENCOUNTER 2021-09-13 11:35 | Outpatient (CLI) | payer BC, SELFPAY ==
--- NOTE | 2021-09-13 11:30 | RT.EKG_ITS ---
APPROVED REPORT Exam: Resting ECG Reason for Exam: dizziness Patient Location: O HR:69 bpm ECG Measurements Heart Rate 69 AXIS MT 150 P 46 QRSd 92 QRS -25 QT 383 T 27 QTc 410 Conclusion Sinus rhythm...normal P axis, V-rate 60- 99
== END 2021-09-13 11:36 | disposition home or self-care (01) ==
LOC: DI.CM 11:35
PROVIDERS: PCP Emergency Medicine; Visit Provider Emergency Medicine
DX: R42 Dizziness and giddiness (principal)
CPT/HCPCS: 93010

== ENCOUNTER 2021-09-13 12:29 | Outpatient (CLI) | payer BC, SELFPAY ==
[2021-09-13 13:22] LABS: Abs Immature Grans 0.02 10^3/uL (0.0-0.06); Absolute Basophil Count 0.03 10^3/uL (0.0-0.2); Absolute Eosinophil Count 0.06 10^3/uL (0.0-0.7); Absolute Lymphocyte Count 1.68 10^3/uL (1.2-3.4); Absolute Monocyte Count 0.39 10^3/uL (0.1-0.8); Absolute Neutrophil Count 3.78 10^3/uL (1.2-6.7); Basophils % 0.5; HCT 40.6 % (36.0-46.0); Immature Grans % 0.3; Lymphocytes % 28.2; MCH 32.1 pg (27.0-33.0); MCHC 34.5 % (32.0-36.0); MCV 93.1 fL (80-95); Monocytes % 6.5; Neutrophils % 63.5; Nucleated RBC 0 %; Platelet Count 219 10^3/uL (130-400); RBC 4.36 10^6/uL (3.93-5.22); RDW 11.8 % (11.7-14.6); RDW-SD 40.4 fL; WBC 5.96 10^3/uL (4.4-10.8)
[2021-09-13 14:57] LABS: ALT 51 U/L (14-59); AST 36 U/L (15-37); Albumin 4.4 g/dL (3.4-5.0); Alkaline Phosphatase 54 U/L (46-116); Anion Gap 9.7 mmol/L (3-11); BUN 18 mg/dL (7-18); Bilirubin, Total 0.8 mg/dL (0.2-1.0); CO2 31.3 mmol/L (21.0-32.0); Calcium 9.2 mg/dL (8.5-10.1); Chloride 102 mmol/L (98-107); Estimated GFR 58.93 (mL/min/1.73m2); Glucose 94 mg/dL (74-106); Potassium 4.2 mmol/L (3.5-5.1); Sodium 143 mmol/L (136-145); TSH 2.99 uIU/mL (0.36-3.74); Total Protein 7.6 g/dL (6.4-8.2)
== END 2021-09-13 12:30 | disposition home or self-care (01) ==
LOC: LBO 12:30
PROVIDERS: PCP Emergency Medicine; Visit Provider Emergency Medicine
DX: E03.9 Hypothyroidism, unspecified (principal); R42 Dizziness and giddiness
CPT/HCPCS: 36415; 80053; 84443; 85025

== ENCOUNTER 2021-09-15 14:51 | Outpatient (CLI) | payer BC, SELFPAY ==
--- NOTE | 2021-09-15 14:15 | ETT_ITS ---
APPROVED REPORT Exam: Exercise Treadmill Patient Location: Out-Patient Room/Bed: Stress Nurse: Renetta Neville RN Ordering Provider:CATHY GREENBERG, Contact Number: [phone] BMI: 24.32 Baseline Rhythm: Sinus Rhythm Comment: Flipped T waves aVL, V2 Indications: Exertional dizziness, lightheadedness Medical History Medical History: Gerd Cardiac Medications: None Allergies: Dermabond Cardiac Risk Factors: None Previous Cardiac Procedures: None Pretest Chest Pain Characteristics: None Exercise History: Physically active Physical Disabilities: None Lung Sounds: Clear to auscultation Heart Sounds: Regular Stress Test Details Test: Exercise stress testing was performed using a modified Dandy protocol. Rest Stress HR Resting HR Supine: 84 bpm Max Heart Rate (APMHR): 171 bpm Resting HR Standin bpm Target HR (85% APMHR): 145 bpm Max HR Achieved: 185 bpm % of APMHR: 108 Recovery HR: 85 bpm HR response to stress: Normal HR response to stress BP Resting BP Supine: 126/80 mmHg Resting BP Standin/76 mmHg Max BP: 162/84 mmHg Recovery BP: 122/78 mmHg BP response to stress: Normal blood pressure response to stress. ECG Resting ECG: Sinus Rhythm Ectopy: None Comment: Flipped T waves aVL, V2 Stress ECG: Sinus Tachycardia ST Change: No significant ST segment changes noted Arrhythmia: Rare PACs and PVCs Recovery ECG: Sinus Rhythm Recovery ST Change: No significant ST segment changes noted Recovery Arrhythmia: None Clinical Reason for Termination: Fatigue, Dizziness Stress Symptoms: General Fatigue, Dizziness Exercise duration: 13 min36 sec Highest Stage Reached: Stage 5: 5.0 mph at 18% grade. Exercise capacity: 14.57 METs Whitt Treadmill Score: 12.9 Rate Pressure Product: [id number] Stress ECG Conclusion 1. Resting electrocardiogram is within normal limits 2. Patient exercised on the Dandy protocol and completed a workload of 14.57 METS 3. Normal heart rate and blood pressure response to exercise. The patient achieved greater than 100% of predicted heart rate for age 4. Electrocardiographically the test was negative for myocardial ischemia 5. Rare atrial and ventricular ectopic beats were noted 6. Patient symptoms of dizziness and lightheadedness did not correspond to any dysrhythmia, abnormal blood pressure or heart rate Whitt Treadmill Score is 12.9 which is Low risk. Stress Test Summary STAGE Time (mins) Speed (mph) Grade (%) HR BP SYMPTOMS METS Supine 84 126 Standing 86 124/76 SpO2 98% 1 3 1.7 10 103 128/76 SpO2 98% 4.6 2 6 2.5 12 121 130/78 SpO2 97% 7 3 9 3.4 14 148 134/84 SpO2 98% 10.2 4 12 4.2 16 162 138/86 SpO2 97% 12.9 5 15 5.0 18 176 Mild dizziness and lightheaded, SpO2 97% 17.2 1 min recovery 146 140/82 Symptoms resolved, SpO2 98% 3 min recovery 97 162/84 SpO2 98% 6 min recovery 89 136/80 SpO2 98% 9 min recovery 85 122/78 SpO2 98% At peak of exercise, pt experienced mild dizziness and lightheadedness. Exercise stopped. Pt stated s ymptoms resolved as soon as she went into supine position. After recovery period when pt was sitting up, mild dizziness and lightheadedness came on again. Resolved with moments of rest in sitting positi on.
== END 2021-09-15 15:11 ==
PROVIDERS: PCP Emergency Medicine; Visit Provider Emergency Medicine
DX: R42 Dizziness and giddiness (principal)
CPT/HCPCS: 93017

== ENCOUNTER 2022-12-15 11:25 | Outpatient (CLI) | payer BC, SELFPAY | END 2022-12-15 11:26 | disposition home or self-care (01) | LOC: CARDOPNVT 11:25 | PROVIDERS: PCP Nurse Practitioner Family; Visit Provider Nurse Practitioner Family | DX: R00.2 Palpitations (principal) | CPT/HCPCS: 93246 ==

== ENCOUNTER 2022-12-20 02:36 | Outpatient (CLI) | payer BC, SELFPAY ==
[2022-12-20 07:42] LABS: Hemoglobin A1C 5.1 % (<5.7)
[2022-12-20 07:57] LABS: ALT 38 U/L (14-59); AST 31 U/L (15-37); Albumin 4.1 g/dL (3.4-5.0); Alkaline Phosphatase 68 U/L (46-116); Anion Gap 5.7 mmol/L (3-11); BUN 16 mg/dL (7-18); Bilirubin, Total 0.6 mg/dL (0.2-1.0); CO2 32.3 mmol/L (21.0-32.0); CREATININE 1.1 mg/dL (0.55-1.02); Calcium 9.4 mg/dL (8.5-10.1); Calculated LDL 123 mg/dL (<100); Chloride 106 mmol/L (98-107); Cholesterol 211 mg/dL (<200); Estimated GFR 61.22 (mL/min/1.73m2); Glucose 91 mg/dL (74-106); HDL Cholesterol 80 mg/dL (40-60); Sodium 144 mmol/L (136-145); Total Protein 7.5 g/dL (6.4-8.2); Triglyceride 41 mg/dL (<150)
== END 2022-12-20 02:37 | disposition home or self-care (01) ==
LOC: LBO 02:37
PROVIDERS: PCP Nurse Practitioner Family; Visit Provider Nurse Practitioner Family
DX: Z00.00 Encounter for general adult medical examination without abnormal findings (principal); Z13.1 Encounter for screening for diabetes mellitus; Z13.220 Encounter for screening for lipoid disorders; Z13.228 Encounter for screening for other metabolic disorders; R00.0 Tachycardia, unspecified; R00.2 Palpitations
CPT/HCPCS: 36415; 80053; 80061; 83036

== ENCOUNTER 2023-01-05 00:18 | Outpatient (CLI) | payer BC, SELFPAY ==
--- NOTE | 2023-01-05 08:00 | DI.MAMMO_ITS ---
Exam(s) MAMMO SCREENING EXAM: MAMMO SCREENING CLINICAL HISTORY: screening,Z12.39 TECHNIQUE: Bilateral full field digital CC and MLO mammographic images were obtained with 3D tomosyn thesis and utilizing computer aided detection (CAD). COMPARISON: Available for comparison. FINDINGS: Masses/Architectural Distortion: None seen. Microcalcifications: No suspicious pleomorphic-type are seen. Skin Thickening/Nipple Retraction: None. IMPRESSION: 1. No significant interval change with no specific features of malignancy noted. 2. Unless there is more urgent need, screening mammography is recommended, as per [employer] guidelines. BI-RADS Category 1 - Negative Breast Density - Category C - Heterogeneously dense Breast density category C or D implies that the patient has dense breast tissue. Dense breast tissue is very common and is not abnormal but dense breast tissue can make it harder to find cancer on a ma mmogram. Also, dense breast tissue may increase their breast cancer risk. This information about the result of the mammogram report was provided to the patient to raise their awareness. Use this report when you speak with the patient about their risks for breast cancer, which includes their family hist ory. At that time, you may recommend for more screening tests (Ultrasound or MRI) as they might be us eful based on their risk. A negative radiographic report should not delay biopsy if a dominant or clinically suspicious mass is present. Up to ten percent of cancers are not identified on mammography. A negative report may reinforce clinical impression. Adenosis and dense breasts may obscure an underlying neoplasm. False positive reports average 6 to 10%. Patient will receive a letter notifying them of these results.
== END 2023-01-05 00:38 ==
LOC: DI 00:19
PROVIDERS: PCP Nurse Practitioner Family; Visit Provider Nurse Practitioner Family
DX: Z12.31 Encounter for screening mammogram for malignant neoplasm of breast (principal)
CPT/HCPCS: 77063; 77067

== ENCOUNTER 2023-01-08 08:26 | Outpatient (CLI) | payer BC, SELFPAY ==
--- NOTE | 2023-01-08 09:05 | W.CARDEVENT ---
Date of service: 01/08/23 Time of Service: 09:06 Cardiac Event Recorder Referring Provider:: Celine Gardner Indications:: Palpitations Cardiac Event Note: This is a 14-day cardiac event monitor Rhythm throughout was sinus with an average heart rate of 75. Minimum was 46, maximum 172 A total of 4 isolated ventricular ectopic beats were seen There were very rare atrial premature beats, a total of 34 There was no atrial fibrillation, no SVT, no high-grade AV block, no pauses greater than 3 seconds Symptoms were reported which corresponded to both sinus rhythm and sinus tachycardia
== END 2023-01-08 08:27 | disposition home or self-care (01) ==
LOC: CARDOPNVT 08:26
PROVIDERS: PCP Nurse Practitioner Family; Visit Provider Internal Medicine Cardiovascular Disease
DX: R00.2 Palpitations (principal); R00.8 Other abnormalities of heart beat

== ENCOUNTER 2023-05-17 10:51 | Outpatient (REF) | payer BC, SELFPAY ==
--- NOTE | 2023-05-17 09:50 | ENDOMET_PTH ---
PATIENT: Sophie Walter LOC: [facility] U#:[id number] AGE/SX: 53/F ROOM: RE05/17/[address]: Ruth Siddiqui MD : 1970 BED: DIS: 05/17/2023 SPEC #: [id number] RECD: 05/17/23 12:06 STATUS: JAVED REОлег #: [id number] LARS: 05/17/23 09:[address]: Ruth Siddiqui DEPT: Surgical Specimen RECD BY: Scarlet Zambrano ENTERED: 05/17/23 12:06 SP TYPE: Endomet OT DR: MANDO Yun Tissues: 1 - ENDOMETRIUM BX/CURRETTE Procedures: GROSS AND MICRO LEVEL 4 Comments: [id number]
== END 2023-05-17 10:52 | disposition home or self-care (01) ==
LOC: LBN 10:51
PROVIDERS: PCP Nurse Practitioner Family; Visit Provider Obstetrics & Gynecology
DX: N85.8 Other specified noninflammatory disorders of uterus (principal)
CPT/HCPCS: 88305

== ENCOUNTER → 2023-07-03 15:18 | Outpatient (CLI) | payer BC, SELFPAY ==
--- NOTE | 2023-07-03 12:00 | DI.RAD_ITS ---
Exam(s) XR WRIST RT COMPLETE EXAM: XR WRIST RT COMPLETE CLINICAL HISTORY: GANGLION, RT WRIST-M67.431, PAIN IN RT WRIST-M25.531. TECHNIQUE: 2D digital imaging was performed of the right wrist. Three views were obtained. PA, lat eral and oblique views were obtained. COMPARISON: CR RIGHT HAND COMPLETE from 07/07/2015 CR RIGHT HAND COMPLETE from 08/04/2015 FINDINGS: BONES: No acute fracture is present. No bony destructive lesion is seen. Old fracture deformities are seen at the bases of the 4th and 5th metacarpals. JOINTS: The carpal bones are normally aligned. SOFT TISSUE: Normal. IMPRESSION: No acute abnormality. DATA REPOSITORY: RADIATION DOSE DELIVERED:
== END ==
PROVIDERS: PCP Nurse Practitioner Family; Visit Provider Nurse Practitioner Family
DX: M25.531 Pain in right wrist (principal); M67.431 Ganglion, right wrist
CPT/HCPCS: 73110

== ENCOUNTER 2023-07-04 14:50 | Outpatient (CLI) | payer BC, SELFPAY ==
[2023-07-04 17:05] LABS: ALT 23 U/L (14-59); AST 20 U/L (15-37); Albumin 3.5 g/dL (3.4-5.0); Alkaline Phosphatase 41 U/L (46-116); Bilirubin, Direct 0.1 mg/dL (0.0-0.2); Bilirubin, Total 0.4 mg/dL (0.2-1.0); Total Protein 6.8 g/dL (6.4-8.2)
== END 2023-07-04 14:51 | disposition home or self-care (01) ==
LOC: LBO 14:50
PROVIDERS: PCP Nurse Practitioner Family; Visit Provider Nurse Practitioner Women's Health
DX: N95.1 Menopausal and female climacteric states (principal); Z79.890 Hormone replacement therapy
CPT/HCPCS: 36415; 80076

== ENCOUNTER 2023-08-21 13:33 | Day surgery (SDC) | payer BC, SELFPAY ==
--- NOTE | 2023-08-21 13:50 | HPE_ITS ---
Documented by User: Maricarmen Pires 08/21/23 15:44 Assessment and Plan Assessment and plan (1) Ganglion cyst of volar aspect of right wrist: Status: Acute Assessment and plan: Plan: Educated patient on surgery covering surgical technique, recovery process, benefits and risks including but not limited to risk of infection, blood clot, damage to soft tissue/blood vessels/nerves in detail. After discussion patient gives verbal understanding of risks and elects to proceed with scheduling surgery. Patient had opportunity to have questions answered to their satisfaction. They will contact office if issues arise. Patient will continue to be scheduled for right De Quervain's release and ganglion cyst excision with associated procedures with Dr. Heredia History of Present Illness Narrative: Ms. Sinclair is a 53-year-old female who presents to hospital for right DeQuervain's and ganglion cyst excision. For full history please refer to her [facility] orthopedic note on 07/16/23. She denies any changes since her last orthopedic appointment and wishes to proceed with surgery. Review of Systems Cardiovascular Cardiovascular: Denies chest pain and Denies dyspnea Respiratory Respiratory: Denies dyspnea PFSH All Active Problems De Quervain's tenosynovitis, left (Acute) De Quervain's tenosynovitis, right (Acute) Ganglion cyst of volar aspect of right wrist (Acute) Hormone replacement therapy (Acute) Hot flashes due to menopause (Acute) HRT initiated 12/2022 Hyperlipidemia (Chronic) Major depressive disorder, recurrent (Chronic) Irritable bowel syndrome (Chronic) Reflux esophagitis (Chronic 01/16/13) Surgical History H/O hand surgery right Hx of foot surgery Hagl[place] deformity S/P appendectomy (~10/2014) History of vein stripping Right leg Family History Mother , 74 from leukemia S/p nephrectomy removed for noncancerous reason Leukemia CML (chronic myelocytic leukemia) Nonalcoholic fatty liver disease Father Prostate cancer Brother No problems noted. Son No problems noted. Son Celiac disease Son No problems noted. Maternal Grandfather Rheumatoid arthritis Maternal Grandmother Nonalcoholic fatty liver disease Paternal Grandfather No problems noted. Paternal Grandmother Lung cancer Social History Smoking/Tobacco Use Status: Never Second Hand Exposure: No Smoking risk assessment performed?: Yes Alcohol Intake: current Alcohol Intake frequency: a few times a week Alcohol type: wine Drug use: Occasionally Substance use type: marijuana Details: alcohol: t-1, 2 glasses of wine. Marijuana:t-365 Caregiver/Support person: No Household members: spouse and children Housing: house Communication Needs: None Do you need help understanding health information?: Never Pets and animals: Yes Pets and animals: dog(s) Sexually active: Yes Do you think of yourself as: straight/heterosexual Current gender identity: female What is your relationship status?: How often do you talk on the phone with friends or family?: three or more times per week How often do you get together with friends or relatives?: decline to answer How often do you attend jehovah's witness or jainism services?: decline to answer Do you belong to any clubs or organized social groups?: decline to answer Panel score (0-1 are the most socially isolated patients): 2 What type of physical activity do you participate in: decline to answer Duration: decline to answer Frequency: decline to answer Seatbelt use: always Do you feel safe at home: Yes Do you feel safe in your relationship?: Yes Female Reproductive History Menstrual control method: other (partner with vasectomy) History History 4 Para 3 Hx # Term Pregnancies Multiple births Hx # Pregnancies Ectopic pregnancies AB induced Hx Number of Living Children AB spontaneous Meds Allergies and Home Medications Allergies Allergy/AdvReac Type Severity Reaction Status Date / Time sertraline HCl [From Zoloft] AdvReac Mild night Verified 08/21/23 14:20 sweats dermabond AdvReac Mild Other (See Uncoded 08/21/23 14:20 Comment) Home Medications Medication Instructions Recorded Confirmed Type cholecalciferol (vitamin D3) 10 10 mcg PO DAILY 09/13/21 08/21/23 History mcg (400 unit) capsule bupropion HCl 300 mg 24 hr tablet, 300 mg PO DAILY #90 tabs 01/09/23 08/21/23 Rx extended release fezolinetant 45 mg tablet (Veozah) 45 mg PO DAILY #30 tabs 07/05/23 08/21/23 Rx acetaminophen 500 mg tablet 500 mg PO Q6H PRN pain #60 tabs 08/21/23 Rx acetaminophen 500 mg tablet 1,000 mg PO QID PRN 08/21/23 08/21/23 History (Tylenol Extra Strength) fluoride (sodium) 1.1 % dental applic 08/21/23 History paste hydrocodone 5 mg-acetaminophen 325 1 tab PO Q6H PRN severe pain #6 08/21/23 Rx mg tablet tabs ibuprofen 600 mg tablet 600 mg PO TID PRN pain #60 tabs 08/21/23 Rx ibuprofen 600 mg tablet (IBU) 600 mg PO ONCE 08/21/23 08/21/23 History Exam Const General: cooperative and no acute distress Resp Effort & Inspection: normal respiratory effort and able to speak in complete sentences Auscultation: clear to auscultation bilaterally, no rales, no rhonchi and no wheezes Cardio Heart Sounds: S1 normal, S2 normal and no murmurs Documented by User: Abrahan Heredia MD 08/21/23 15:30 Assessment and Plan Assessment and plan (1) Ganglion cyst of volar aspect of right wrist: Status: Acute Assessment and plan: Plan: Educated patient on surgery covering surgical technique, recovery process, benefits and risks including but not limited to risk of infection, blood clot, damage to soft tissue/blood vessels/nerves in detail. After discussion patient gives verbal understanding of risks and elects to proceed with scheduling surgery. Patient had opportunity to have questions answered to their satisfaction. I believe that the cyst is likely responsible for most of her symptoms. I do not believe that she has de Quervain's tenosynovitis. She may have some derangement of the radial scaphoid joint but I think the first step to be to remove the cyst and see how much better that makes things. I discussed the surgery with her. I reviewed the risk to include bleeding, infection, pain, stiffness, damage to nerves and vessels, damage to other soft tissues, continued symptoms. Despite these risk, she elects to proceed. History of Present Illness Narrative: Sophie is a 53-year-old female who presents to hospital for right wrist pain and cyst. She has continued pain about the radial aspect of the right wrist. She has a large volar cyst which continues to enlarge with time and is getting the way of her active lifestyle. She has pain with direct pressure as well as motion of the wrist. She denies any other changes to the skin. No drainage. Review of Systems All systems reviewed & are unremarkable except as noted in HPI and below PFSH All Active Problems De Quervain's tenosynovitis, left (Acute) De Quervain's tenosynovitis, right (Acute) Ganglion cyst of volar aspect of right wrist (Acute) Hormone replacement therapy (Acute) Hot flashes due to menopause (Acute) HRT initiated 12/2022 Hyperlipidemia (Chronic) Major depressive disorder, recurrent (Chronic) Irritable bowel syndrome (Chronic) Reflux esophagitis (Chronic 01/16/13) Surgical History H/O hand surgery right Hx of foot surgery [place] deformity S/P appendectomy (~10/2014) History of vein stripping Right leg Family History Mother , 74 from leukemia S/p nephrectomy removed for noncancerous reason Leukemia CML (chronic myelocytic leukemia) Nonalcoholic fatty liver disease Father Prostate cancer Brother No problems noted. Son No problems noted. Son Celiac disease Son No problems noted. Maternal Grandfather Rheumatoid arthritis Maternal Grandmother Nonalcoholic fatty liver disease Paternal Grandfather No problems noted. Paternal Grandmother Lung cancer Social History Smoking/Tobacco Use Status: Never Second Hand Exposure: No Smoking risk assessment performed?: Yes Alcohol Intake: current Alcohol Intake frequency: a few times a week Alcohol type: wine Drug use: Occasionally Substance use type: marijuana Details: alcohol: t-1, 2 glasses of wine. Marijuana:t-365 Caregiver/Support person: No Household members: spouse and children Housing: house Communication Needs: None Do you need help understanding health information?: Never Pets and animals: Yes Pets and animals: dog(s) Sexually active: Yes Do you think of yourself as: straight/heterosexual Current gender identity: female What is your relationship status?: How often do you talk on the phone with friends or family?: three or more times per week How often do you get together with friends or relatives?: decline to answer How often do you attend jehovah's witness or jainism services?: decline to answer Do you belong to any clubs or organized social groups?: decline to answer Panel score (0-1 are the most socially isolated patients): 2 What type of physical activity do you participate in: decline to answer Duration: decline to answer Frequency: decline to answer Seatbelt use: always Do you feel safe at home: Yes Do you feel safe in your relationship?: Yes History History 4 Para 3 Hx # Term Pregnancies Multiple births Hx # Pregnancies Ectopic pregnancies AB induced Hx Number of Living Children AB spontaneous Meds Allergies and Home Medications Allergies Allergy/AdvReac Type Severity Reaction Status Date / Time sertraline HCl [From Zoloft] AdvReac Mild night Verified 08/21/23 14:20 sweats dermabond AdvReac Mild Other (See Uncoded 08/21/23 14:20 Comment) Home Medications Medication Instructions Recorded Confirmed Type cholecalciferol (vitamin D3) 10 10 mcg PO DAILY 09/13/21 08/21/23 History mcg (400 unit) capsule bupropion HCl 300 mg 24 hr tablet, 300 mg PO DAILY #90 tabs 01/09/23 08/21/23 Rx extended release fezolinetant 45 mg tablet (Veozah) 45 mg PO DAILY #30 tabs 07/05/23 08/21/23 Rx acetaminophen 500 mg tablet 500 mg PO Q6H PRN pain #60 tabs 08/21/23 Rx acetaminophen 500 mg tablet 1,000 mg PO QID PRN 08/21/23 08/21/23 History (Tylenol Extra Strength) fluoride (sodium) 1.1 % dental applic 08/21/23 History paste hydrocodone 5 mg-acetaminophen 325 1 tab PO Q6H PRN severe pain #6 08/21/23 Rx mg tablet tabs ibuprofen 600 mg tablet 600 mg PO TID PRN pain #60 tabs 08/21/23 Rx ibuprofen 600 mg tablet (IBU) 600 mg PO ONCE 08/21/23 08/21/23 History
--- NOTE | 2023-08-21 13:54 | PDOC.DSDIS_ITS ---
Date of service: 08/21/23 Time of Service: 15:46 Discharge Plan Disposition Patient Disposition: Home Condition: Good Discharge Details Reason For Visit: Right wrist ganglion cyst Attending Provider: Abrahan Heredia Primary Care Provider: Celine Gardner Home Meds and New Rx's Prescriptions: New hydrocodone-acetaminophen 5-325 mg tablet 1 tab PO Q6H PRN (Reason: severe pain) Qty: 6 0RF Rx Instructions: Take one tablet up to every 6 hours as needed for severe postoperative pain acetaminophen 500 mg tablet 500 mg PO Q6H PRN (Reason: pain) Qty: 60 2RF ibuprofen 600 mg tablet 600 mg PO TID PRN (Reason: pain) Qty: 60 0RF Continued cholecalciferol (vitamin D3) 10 mcg (400 unit) capsule 10 mcg PO DAILY bupropion HCl 300 mg tablet extended release 24 hr 300 mg PO DAILY Qty: 90 4RF Veozah 45 mg tablet 45 mg PO DAILY Qty: 30 11RF Discontinued acetaminophen [Acetaminophen Extra Strength] 500 MG tablet 1,000 mg PO Q8H PRN PRNQty: 100 3RF No Action acetaminophen [Tylenol Extra Strength] 500 mg tablet 1,000 mg PO QID PRN ibuprofen [IBU] 600 mg tablet 600 mg PO ONCE fluoride (sodium) 1.1 % paste Discharge Instructions Additional Instructions: Cyst Excision Discharge Instructions Activity: You should keep the hand elevated as much as possible for the first few days. You may use the other fingers as tolerated but avoid trying to do too much too soon. You may perform light activities with the splint in place. Dressing/Cast: Your dressing should stay in place at all times for the first 72 hours - cover for hygiene purposes. After 72 hours you may remove dressing and clean incision. You may wash and dry incision and cover with a clean band aide as desired. Medications: - You should take Tylenol and Ibuprofen for baseline pain control. - You have Hydrocodone for breakthrough pain. - You may apply ice over the wrist. Follow-up: 7-10 days Referrals: Abrahan Heredia MD [ [facility] STAFF PHYSICIAN] - Activity:: Elevate Remove Dressings/Wound Care:: 72 hours Shower/Bathe:: 72 hours Diet:: As Tolerated Discharge Orders Discharge Orders: Discharge Order (Routine); Ordered 10/24/23 Ordered By: Maricarmen Pires DS: Diagnosis Discharge Diagnosis (1) Ganglion cyst of volar aspect of right wrist: Status: Acute
[2023-08-21 14:37] VITALS: BP 133/88; PULSE 81; RESP 20; TEMP 36.5; O2SAT 98
[2023-08-21] MEDS: Lactated Ringers 1,000 ML 80 ML IV (14:55)
--- NOTE | 2023-08-21 14:58 | W.ANESPRE ---
General Info Date of Service Date Performed: 08/21/23 Height: 5 ft 8 in Weight: 62.7 kg Body Mass Index (BMI): 20.9 Surgical Procedure: Operation Date: 08/21/23 16:25 Proposed Procedure Side Surgeon p Wrist Dequervains Release Right Abrahan Heredia MD s Wrist Cyst Removal Right Abrahan Heredia MD Meds Allergies and Home Medications Allergies Allergy/AdvReac Type Severity Reaction Status Date / Time sertraline HCl [From Zoloft] AdvReac Mild night Verified 08/21/23 14:20 sweats dermabond AdvReac Mild Other (See Uncoded 08/21/23 14:20 Comment) Home Medication Medication Instructions Recorded cholecalciferol (vitamin D3) 10 10 mcg PO DAILY 09/13/21 mcg (400 unit) capsule bupropion HCl 300 mg 24 hr tablet, 300 mg PO DAILY #90 tabs 01/09/23 extended release fezolinetant 45 mg tablet (Veozah) 45 mg PO DAILY #30 tabs 07/05/23 acetaminophen 500 mg tablet 500 mg PO Q6H PRN pain #60 tabs 08/21/23 acetaminophen 500 mg tablet 1,000 mg PO QID PRN 08/21/23 (Tylenol Extra Strength) fluoride (sodium) 1.1 % dental applic 08/21/23 paste hydrocodone 5 mg-acetaminophen 325 1 tab PO Q6H PRN severe pain #6 08/21/23 mg tablet tabs ibuprofen 600 mg tablet 600 mg PO TID PRN pain #60 tabs 08/21/23 ibuprofen 600 mg tablet (IBU) 600 mg PO ONCE 08/21/23 Current Visit Medications: Current Medications Generic Name Dose Route Start Last Admin Trade Name Freq PRN Reason Stop Dose Admin Acetaminophen 650 mg 08/21/23 13:53 Acetaminophen 325 Mg Tab PO 09/20/23 13:52 Q4H PRN PRN Hydrocodone Bitart/Acetaminophen 0 tab 08/21/23 13:53 Hydrocodone 5/Acetaminophen 325 Tab PO 09/20/23 13:52 Q3H PRN PRN Pain Ringer's Solution 1,000 mls @ 80 mls/hr 08/21/23 06:00 IV 09/19/23 23:59 INFUSION MARYELLEN Cefazolin Sodium/Dextrose 2 gm in 50 mls @ 100 mls/hr 08/21/23 06:00 Ancef Duplex IVPB 09/19/23 23:59 PREOP MARYELLEN IV Miscellaneous Supplies 1 each 08/21/23 06:00 Iv Access IV 09/19/23 23:59 DIRECTED MARYELLEN Sodium Chloride 0 ml 08/21/23 06:00 Normal Saline Flush 10 Ml Syr IV 09/19/23 23:59 PRN PRN Sodium Chloride 0 ml 08/21/23 06:00 Normal Saline 10 Ml Vial IJ 09/19/23 23:59 DIRECTED PRN Sterile Water 0 ml 08/21/23 06:00 Water,Injection,Sterile 10 Ml Vial IJ 09/19/23 23:59 DIRECTED PRN PFSH Active Problems Active Problems: Problem Status Onset Code De Quervain's tenosynovitis, left M65.4 De Quervain's tenosynovitis, right M65.4 Ganglion cyst of volar aspect of right wrist M67.431 Hormone replacement therapy Z79.890 Hot flashes due to menopause N95.1 Hyperlipidemia E78.5 Major depressive disorder, recurrent F33.9 Irritable bowel syndrome K58.9 Reflux esophagitis 01/16/13 K21.0 Surgical History Surgical History (Updated 08/21/23 @ 14:32 by Annette Medina) H/O hand surgery right Hx of foot surgery [place] deformity S/P appendectomy (~10/2014) History of vein stripping Right leg Tobacco Smoking/Tobacco Use Status: Never Passive smoking exposure: No Second hand exposure: No Alcohol Alcohol Intake: current Alcohol intake frequency: a few times a week Alcohol type: wine Substance Use Substance use: Occasionally Substance use type: marijuana Details: alcohol: t-1, 2 glasses of wine. Marijuana:t-365 Prental History History 4 Para 3 Hx # Term Pregnancies Multiple births Hx # Pregnancies Ectopic pregnancies AB induced Hx Number of Living Children AB spontaneous Vital Signs and Lab Results Vital Signs Most Recent Vital Signs in EMR: Most Recent Vital Signs Temp Pulse Resp BP Pulse Ox 36.5 C 81 20 133/88 98 08/21/23 14:37 08/21/23 14:37 08/21/23 14:37 08/21/23 14:37 08/21/23 14:37 Point of Care Results Point of Care Results: POC- Test(urine) Negative 08/21/23 14:00 Lab Results Blood Type / Crossmatch: No Data to Display Complete Blood Count: No Data to Display Complete Metabolic Panel: No Data to Display Liver Function Panel: No Data to Display Coagulation Panel: No Data to Display Cardiac Panel: No Data to Display Arterial Blood Gas: No Data to Display Venous Blood Gas: No Data to Display Pancreas Panel: No Data to Display Thyroid Panel: No Data to Display Infectious Disease: No Data to Display Blood Cultures: No Data to Display Toxicology Panel: No Data to Display Panel: No Data to Display Imaging and Studies Imaging and Studies Study information below may be from another EMR and interpreted by another provider. Please see original notes in EMR for more complete details. EKG Summary: Conclusion Sinus rhythm...normal P axis, V-rate 60- 99 09/13/21 Stress Test Summary: Stress ECG Conclusion 1. Resting electrocardiogram is within normal limits 2. Patient exercised on the Dandy protocol and completed a workload of 14.57 METS 3. Normal heart rate and blood pressure response to exercise. The patient achieved greater than 100% of predicted heart rate for age 4. Electrocardiographically the test was negative for myocardial ischemia 5. Rare atrial and ventricular ectopic beats were noted 6. Patient symptoms of dizziness and lightheadedness did not correspond to any dysrhythmia, abnormal blood pressure or heart rate Whitt Treadmill Score is 12.9 which is Low risk. 09/15/21 Anesthesia Assessment and Plan Anesthesia History Personal History: No History of Anesthesia Complications Family History: No Family History of Anesthesia Complications Exercise Tolerance Exercise Tolerance: Metabolic Equivalents>4 Pertinent Negatives Pertinent Negatives: No Symptoms of GERD, No Major Cardiovascular Symptoms or Complaints, No Major Pulmonary Symptoms or Complaints and No History of CVA/TIA Cardiac & Pulmonary Exam Cardiac Exam: Normal S1/S2 Heart Sounds Pulmonary Exam: Clear Bilateral Breath Sounds Implantable Cardiac Device Does patient have a Pacemaker or an ICD?: No Airway Exam Known Difficult Airway: No Mallampati Class: 2 Mouth Opening: Normal (> 3cm) Thyromental Distance: Greater than 3 cm Neck Range of Motion: Full ROM Neck Circumference: Normal Teeth Condition: Normal Dentition ASA Classification ASA Score: ASA 2 Emergency Case?: No NPO Status NPO Status: NPO Clears >2 hours, Solids >8 hours Status Status: Negative HCG Anesthesia Plan Resuscitation Status: Full Code Anesthesia Technique: General Anesthesia Airway Planned: Natural Airway Monitors Used: Standard Monitors
[2023-08-21 15:21] VITALS: BMI 20.9
[2023-08-21] MEDS: ceFAZolin 2 GM/50 ML BAG IVPB (15:42)
[2023-08-21] MEDS: Lidocaine 1% Multi-Dose W/EPI 1/100,000 50 ML VIAL (15:48)
[2023-08-21] MEDS: Sodium Bicarbonate 50 MEQ/50 ML VIAL (15:48)
[2023-08-21 16:18] VITALS: BP 110/73; PULSE 89; RESP 16; TEMP 36.5; O2SAT 96
[2023-08-21 16:44] VITALS: BP 131/87; PULSE 63; RESP 16; TEMP 36.6; O2SAT 99
--- NOTE | 2023-08-21 17:04 | W.ANESPOSTOP ---
Postoperative Evaluation Date, Time and Location Date Performed: 08/21/23 Time Performed: 16:41 Patient Location: Day Surgery Unit Vital Signs Most Recent Imported Vital Signs: Most Recent Vital Signs Temp Pulse Resp BP Pulse Ox 36.5 C 89 16 110/73 96 08/21/23 16:26 08/21/23 16:26 08/21/23 16:26 08/21/23 16:26 08/21/23 16:26 Pain Score Most Recent Pain Score: Most Recent Pain Score Pain Level 0 08/21/23 14:37 Assessment Mental Status: Awake (Alert & Oriented to Patient Baseline) Airway and Respiratory Function: Patent airway with normal (patient baseline) respiratory exam Cardiovascular Function: Hemodynamically Stable Hydration Status: Adequately Hydrated Nausea & Vomiting: No Nausea or Vomiting Pain: Pt. Denies Any Pain Peripheral Nerve Block: Patient did not receive a nerve block
--- NOTE | 2023-08-21 17:19 | ROE_ITS ---
Date of service: 08/21/23 Time of Service: 14:00 Operative Note Operative Note DATE OF PROCEDURE: 08/21/23 PRE-OP DIAGNOSIS: Right Volar Wrist Ganglion Cyst POST-OP DIAGNOSIS: same PROCEDURE: Excision of volar wrist ganglion cyst - Right wrist SURGEON: Abrahan Heredia ANESTHESIA TYPE: General:No Airway Refer to Anesthesia Record ESTIMATED BLOOD LOSS: 0 PATHOLOGY: none sent TOURNIQUET TIME: 0 COMPLICATIONS: None Patient was transported to: same day Patient's condition: stable Indications: Sophie is a 53 year old who I have seen for a volar wrist ganglion cyst. It has continued to be bothersome despite some conservative options. Its size and interference with activities continues to cause problems. Therefore, I offered excision of the volar wrist cyst. I discussed the risks to include bleeding, infection, pain, stiffness, damage to nerve and vessels, recurrence. Despite these risks, she elects to proceed. Procedure Description: Sophie was greeted in the preoperative holding area. Identity was confirmed and the correct site was identified and marked. Consent was reviewed the patient and signed. History and physical was updated. The patient to take not to the operating room placed in supine position. All bony prominences were well- padded. A nonsterile tourniquet was placed high up onto the right arm but not used. The arms and prepped with ChloraPrep and draped in a standard fashion. The surgical site was marked on the skin and injected with 1% lidocaine with epinephrine. The skin was incised sharply. Deeper dissection was carried out with tenotomy scissors and careful attention to vascular branches in this area. The mass was identified and protected with dissection carried around. Once was fully identified it was deflated and the cyst stalk was followed down to the carpus. The cyst was quite large and there was copious amounts of ganglionic fluid expressed. The cyst structure was resected and its origin from the carpus was opened with tenotomy scissors and rongeur. The wound was then thoroughly irrigated. There is no major arterial bleeding or any other persistent ooze. The wound was dry. The deep layer was reapproximated with a 3-0 Vicryl. The skin was closed with a running 4-0 Monocryl followed by skin glue, gauze, and Nick wrap. The wrist was placed into a short arm splint. At the end the case all counts were correct. The patient was awakened from anesthesia and taken to the DSU in stable condition. There were no noted complications.
== END 2023-08-21 18:04 | disposition home or self-care (01) ==
PROVIDERS: PCP Nurse Practitioner Family; Visit Provider Student in an Organized Health Care Education/Training Program
PROC: (CPT 25111; 2023-08-21 16:15)
DX: M67.431 Ganglion, right wrist (principal); E78.5 Hyperlipidemia, unspecified; F33.9 Major depressive disorder, recurrent, unspecified; K58.9 Irritable bowel syndrome, unspecified
CPT/HCPCS: 25111; 00123; 81025; J0690; J1100; J1885; J2001; J2405

== ENCOUNTER 2023-08-30 11:13 | Outpatient (CLI) | payer BC, SELFPAY ==
--- NOTE | 2023-08-30 08:45 | DI.RAD_ITS ---
Exam(s) XR FEMUR RT EXAM: XR FEMUR RT CLINICAL HISTORY: right leg pain. TECHNIQUE: 2D digital imaging was performed of the right femur. Four images were obtained. AP and l ateral views were obtained. COMPARISON: CR RIGHT KNEE 3 VIEWS from 07/29/2010 FINDINGS: BONES: No acute fracture is present. No bony destructive lesion is seen. Visualized portion of knee a nd hip joints are unremarkable. There is again seen a sclerotic intramedullary lesion in the distal f emoral metaphysis. This likely reflects an enchondroma or bone infarct. This was present on the tr or examination. There is a small enthesophyte arising from the greater trochanter. SOFT TISSUE: Normal. IMPRESSION: No acute abnormality. DATA REPOSITORY: RADIATION DOSE DELIVERED:
--- NOTE | 2023-08-30 08:45 | DI.RAD_ITS ---
Exam(s) XR HEEL RT OS CALCIS EXAM: XR HEEL RT OS CALCIS CLINICAL HISTORY: right leg pain. TECHNIQUE: 2D digital imaging was performed of the right calcaneus. Two images were obtained. Axia l and lateral views were obtained. COMPARISON: CR [id number] VIEW from 09/19/2016 FINDINGS: BONES: No acute fracture is present. No bony destructive lesion is seen. There is unchanged chronic i rregularity along the superior aspect of the posterior calcaneal process. Chronic well corticated os seous densities are seen at the superior aspect of the posterior calcaneus on the lateral view. Ther e is a tiny enthesophyte at the posterior calcaneus. JOINTS: No dislocation present. SOFT TISSUE: Normal. IMPRESSION: No acute abnormality. Stable changes of the posterior process of the calcaneus. DATA REPOSITORY: RADIATION DOSE DELIVERED:
== END 2023-08-30 11:14 | disposition home or self-care (01) ==
LOC: DIORS 11:13
PROVIDERS: PCP Nurse Practitioner Family; Visit Provider Student in an Organized Health Care Education/Training Program
DX: M79.604 Pain in right leg (principal)
CPT/HCPCS: 73552; 73650

== ENCOUNTER 2024-05-26 11:32 | Outpatient (CLI) | payer BC, SELFPAY ==
--- NOTE | 2024-05-26 11:15 | DI.RAD_ITS ---
Exam(s) XR HAND LT COMPLETE EXAM: XR HAND LT COMPLETE CLINICAL HISTORY: left hand and wrist cyst. TECHNIQUE: 2D digital imaging was performed. Three views. COMPARISON: CR XR HAND RT COMPLETE from 05/26/2024 FINDINGS: BONES: No acute fracture is present. No bony destructive lesion is seen. JOINTS: No dislocation present. Mild narrowing of the interphalangeal joints of the fingers and mil d periarticular spurring. SOFT TISSUE: Normal. IMPRESSION: Mild degenerative changes of the interphalangeal joints. DATA REPOSITORY: RADIATION DOSE DELIVERED:
--- NOTE | 2024-05-26 11:15 | DI.RAD_ITS ---
Exam(s) XR HAND RT COMPLETE EXAM: XR HAND RT COMPLETE CLINICAL HISTORY: right hand cyst. TECHNIQUE: 2D digital imaging was performed. Three views. COMPARISON: CR RIGHT HAND COMPLETE from 08/04/2015 CR XR WRIST RT COMPLETE from 07/03/2023 CR XR HAND LT COMPLETE from 05/26/2024 FINDINGS: BONES: No acute fracture is present. Old fracture deformities are again noted at the bases of the 4t h and 5th metacarpals. No bony destructive lesion is seen. JOINTS: No dislocation present. Spurring noted between the 4th and 5th metacarpal bases. SOFT TISSUE: Normal. IMPRESSION: Old healed fractures of the base of the 4th and 5th metacarpals appearing and degenerative changes. DATA REPOSITORY: RADIATION DOSE DELIVERED:
== END 2024-05-26 11:33 | disposition home or self-care (01) ==
LOC: DIORS 11:33
PROVIDERS: PCP Nurse Practitioner Family; Referring Provider Nurse Practitioner Family; Visit Provider Physician Assistant
DX: M25.842 Other specified joint disorders, left hand (principal); M25.841 Other specified joint disorders, right hand; M19.041 Primary osteoarthritis, right hand; M19.042 Primary osteoarthritis, left hand
CPT/HCPCS: 73130

== ENCOUNTER 2024-09-09 11:44 | Outpatient (CLI) | payer BC, SELFPAY ==
[2024-09-09 12:28] LABS: ALT 50 U/L (14-59); AST 31 U/L (15-37); Albumin 4.2 g/dL (3.4-5.0); Alkaline Phosphatase 67 U/L (46-116); Anion Gap 7.1 mmol/L (3-11); BUN 19 mg/dL (7-18); Bilirubin, Total 0.77 mg/dL (0.2-1.0); CO2 31.9 mmol/L (21.0-32.0); CREATININE 1.1 mg/dL (0.55-1.02); Calcium 9.4 mg/dL (8.5-10.1); Chloride 104 mmol/L (98-107); Estimated GFR 60.46 (mL/min/1.73m2); Glucose 96 mg/dL (74-106); Potassium 4.3 mmol/L (3.5-5.1); Sodium 143 mmol/L (136-145); Total Protein 7.9 g/dL (6.4-8.2)
== END 2024-09-09 11:45 | disposition home or self-care (01) ==
LOC: LBO 11:45
PROVIDERS: PCP Nurse Practitioner Family; Visit Provider Nurse Practitioner Women's Health
DX: N95.1 Menopausal and female climacteric states (principal)
CPT/HCPCS: 36415; 80053

== ENCOUNTER 2024-10-08 09:41 | Outpatient (REF) | payer BC, SELFPAY ==
--- NOTE | 2024-10-08 09:30 | PAPFT_PTH ---
PATIENT: Sophie Walter LOC: [facility] U#:[id number] AGE/SX: 54/F ROOM: RE10/08/[address]: Bernadette Saldaña NP : 1970 BED: DIS: 10/08/2024 SPEC #: [id number] RECD: 10/08/24 13:00 STATUS: JAVED DIOP #: [id number] LARS: 10/08/24 09:[address]: Piper RENTERIA,Bernadette DEPT: [facility] Cytology RECD BY: Scarlet Zambrano ENTERED: 10/08/24 13:01 SP TYPE: PAPFT OTHR DR: Celine Gardner, DIGITAL CONTENT PRODUCER Tissues: 1 - CX/ENDOCX FOR PAP SMEARS Procedures: PAP THIN PREP/[facility] Screening HPV DNA PROBE Comments: [id number] (HPV 16 & 18/45)
== END 2024-10-08 09:42 | disposition home or self-care (01) ==
LOC: LBN 09:41
PROVIDERS: PCP Nurse Practitioner Family; Visit Provider Nurse Practitioner Women's Health
DX: Z12.4 Encounter for screening for malignant neoplasm of cervix (principal)
CPT/HCPCS: 88142; 87624

== ENCOUNTER 2024-12-31 14:27 | Outpatient (CLI) | payer BC, SELFPAY ==
[2024-12-31 15:24] LABS: ALT 42 U/L (14-59); AST 28 U/L (15-37); Alkaline Phosphatase 67 U/L (46-116); Anion Gap 4.8 mmol/L (3-11); BUN 27 mg/dL (7-18); Bilirubin, Total 0.49 mg/dL (0.2-1.0); CO2 33.2 mmol/L (21.0-32.0); CREATININE 1.2 mg/dL (0.55-1.02); Calcium 9.2 mg/dL (8.5-10.1); Chloride 105 mmol/L (98-107); Estimated GFR 54.46 (mL/min/1.73m2); Glucose 96 mg/dL (74-106); Potassium 3.8 mmol/L (3.5-5.1); Sodium 143 mmol/L (136-145); TSH (W/Ref FT4) 2.14 uIU/mL (0.36-3.74); Total Protein 7.3 g/dL (6.4-8.2)
== END 2024-12-31 14:28 | disposition home or self-care (01) ==
LOC: LBO 14:28
PROVIDERS: PCP Nurse Practitioner Family; Visit Provider Nurse Practitioner Women's Health
DX: R23.2 Flushing (principal); N95.1 Menopausal and female climacteric states
CPT/HCPCS: 36415; 80053; 84443

== ENCOUNTER 2025-01-06 01:22 | Outpatient (CLI) | payer BC, SELFPAY ==
--- NOTE | 2025-01-06 07:42 | DI.MAMMO_ITS ---
Exam(s) MAMMO SCREENING EXAM: MAMMO SCREENING CLINICAL HISTORY: screening,z12.39 TECHNIQUE: Bilateral full field digital CC and MLO mammographic images were obtained with 3D tomosyn thesis and utilizing computer aided detection (CAD). COMPARISON: Available for comparison. FINDINGS: Masses/Architectural Distortion: None seen. Microcalcifications: No suspicious pleomorphic-type are seen. Skin Thickening/Nipple Retraction: None. IMPRESSION: 1. No significant interval change with no specific features of malignancy noted. 2. Unless there is more urgent need, screening mammography is recommended, as per [employer] guidelines. BI-RADS Category 1 - Negative Breast Density - Category C - Heterogeneously dense Breast density category C or D implies that the patient has dense breast tissue. Dense breast tissue is very common and is not abnormal but dense breast tissue can make it harder to find cancer on a ma mmogram. Also, dense breast tissue may increase their breast cancer risk. This information about the result of the mammogram report was provided to the patient to raise their awareness. Use this report when you speak with the patient about their risks for breast cancer, which includes their family hist ory. At that time, you may recommend for more screening tests (Ultrasound or MRI) as they might be us eful based on their risk. A negative radiographic report should not delay biopsy if a dominant or clinically suspicious mass is present. Up to ten percent of cancers are not identified on mammography. A negative report may reinforce clinical impression. Adenosis and dense breasts may obscure an underlying neoplasm. False positive reports average 6 to 10%. Patient will receive a letter notifying them of these results.
== END 2025-01-06 01:42 ==
LOC: DI 01:22
PROVIDERS: PCP Nurse Practitioner Family; Visit Provider Nurse Practitioner Women's Health
DX: Z12.31 Encounter for screening mammogram for malignant neoplasm of breast (principal); R92.333 Mammographic heterogeneous density, bilateral breasts
CPT/HCPCS: 77063; 77067

== ENCOUNTER 2025-06-01 10:20 | Outpatient (CLI) | payer BC, SELFPAY ==
--- NOTE | 2025-06-01 08:30 | DI.RAD_ITS ---
Exam(s) XR LUMBAR SPINE COMPLETE EXAM: XR LUMBAR SPINE COMPLETE CLINICAL HISTORY: Low back ache, M54.50, pain and crepitus, seeing PT. TECHNIQUE: 2D digital imaging was performed of the lumbar spine. Images were obtained. AP, lateral, right oblique, left oblique and L5-S1 spot views were obtained. COMPARISON: CR SACRUM COCCYX from 07/13/2009 CT ABD PELVIS WITH CONTRAST from 11/12/[address] CHEST PE CTA from 11/05/2019 FINDINGS: BONES: No fracture or destructive lesion. There are small osteophytes seen at the endplates in the lumbar spine. There are mild degenerative changes seen at the facets particularly at L5-S1. No facet hypertrophy identified. DISKS: Intervertebral disc spaces are maintained. ALIGNMENT: Lumbar spinal alignment is within normal limits. No spondylolysis or spondylolisthesis. SOFT TISSUE: Normal. IMPRESSION: Mild degenerative changes seen in the lumbar spine. DATA REPOSITORY: RADIATION DOSE DELIVERED:
== END 2025-06-01 10:40 ==
LOC: DI 10:20
PROVIDERS: PCP Nurse Practitioner Family; Visit Provider Nurse Practitioner Family
DX: M51.360 Other intervertebral disc degeneration, lumbar region with discogenic back pain only (principal)
CPT/HCPCS: 72110

== ENCOUNTER 2025-08-10 02:41 | Outpatient (CLI) | payer BC, SELFPAY ==
--- NOTE | 2025-08-10 15:15 | DI.MRI_ITS ---
Exam(s) MR LUMBAR SPINE WO EXAM: MR LUMBAR SPINE WO CLINICAL HISTORY: low back pain,m54.50. TECHNIQUE: Multiplanar multisequence MRI of the Lumbar spine was performed. COMPARISON: CR XR LUMBAR SPINE COMPLETE from 06/01/2025 FINDINGS: Bones: The last intervertebral disc space is designated the L5/S1 level for the numbering purpose of this examination. The vertebral body heights are well maintained. Alignment: Unremarkable. The marrow signal characteristics are unremarkable. Cord: The conus tip ends at the T12 level. It is of normal size and signal intensity. T12-L1: No focal disc herniation is present. No central spinal canal stenosis.No neural foraminal stenosis. L1-2:Disc height is maintained. No focal disc herniation is present. No central spinal canal stenosis.No neural foraminal stenosis. L2-3:Disc height is maintained. No focal disc herniation is present. No central spinal canal stenosis.No neural foraminal stenosis. L3-4: Disc height is maintained.No focal disc herniation is present. No central spinal canal stenosis.No neural foraminal stenosis. L4-5: Disc height is maintained. Mild disc bulging. No focal disc herniation is present. Mild facet degenerative changes no central spinal canal stenosis.No neural foraminal stenosis. L5-S1: No focal disc herniation is present. No central spinal canal stenosis.No neural foraminal stenosis. The visualized SI joints and sacrum are unremarkable. Soft tissues: The paraspinal soft tissues are unremarkable. IMPRESSION: Mild disc bulging and facet degenerative changes at L4-5. No evidence of disc herniation, neural foraminal narrowing aspect central canal stenosis at any level.. DATA REPOSITORY:
== END 2025-08-10 03:01 ==
LOC: DI 02:42
PROVIDERS: PCP Nurse Practitioner Family; Visit Provider Nurse Practitioner Family
DX: M51.360 Other intervertebral disc degeneration, lumbar region with discogenic back pain only (principal)
CPT/HCPCS: 72148

== ENCOUNTER 2025-10-20 12:49 | Outpatient (CLI) | payer BC, SELFPAY ==
[2025-10-20 14:42] LABS: ALT 32 U/L (10-49); AST 32 U/L (<34); Albumin 4.4 g/dL (3.2-5.0); Alkaline Phosphatase 62 U/L (46-116); Anion Gap 9.4 mmol/L (3-11); BUN 21 mg/dL (9-23); Bilirubin, Total 0.6 mg/dL (0.2-1.2); CO2 31.6 mmol/L (20.0-31.0); Calcium 9.3 mg/dL (8.3-10.6); Chloride 103 mmol/L (98-107); Glucose 98 mg/dL (74-106); Potassium 3.9 mmol/L (3.5-5.1); Sodium 144 mmol/L (136-145); Total Protein 7.0 g/dL (5.7-8.2)
== END 2025-10-20 12:50 | disposition home or self-care (01) ==
LOC: LBO 12:49
PROVIDERS: PCP Nurse Practitioner Family; Visit Provider Obstetrics & Gynecology
DX: N95.1 Menopausal and female climacteric states (principal)
CPT/HCPCS: 36415; 80053